=== PATIENT | male | born 1940 | race Caucasian/White ===

== ENCOUNTER 2019-03-28 17:51 | Inpatient (IN) | payer MEDICARE, OTHER | END 2019-03-31 20:04 | disposition home or self-care (01) | LOC: EDH 17:51 → EDHIP 20:25 → 3CH 21:14 | DX: J18.9 Pneumonia, unspecified organism (principal); J44.0 Chronic obstructive pulmonary disease with (acute) lower respiratory infection; E86.0 Dehydration; J40 Bronchitis, not specified as acute or chronic ==

== ENCOUNTER → 2020-12-09 | Outpatient (CLI) | payer MEDICARE ==
[~2020-12-09] MED LIST: ALBU18HF7 IH; ALBU8.5H8 IH; AMLO-258 PO; ASPI-1443 PO; ENAL10TA18 PO; ESOM20CA31 PO; FINA5TAB41 PO; IPRATROPIUM BROMIDE IH; LISI10TA7 PO; LORA1TAB3 PO; MIRA25TA PO; OMEG-148 PO; TURM500C9 PO; ZINC OXIDE PO; vitamin c PO; vitamin d PO
== END | disposition home or self-care (01) ==
LOC: SHCH 13:52
PROVIDERS: ATTEND Internal Medicine Cardiovascular Disease
DX: I35.8 Other nonrheumatic aortic valve disorders (principal)
CPT/HCPCS: 93306; 93356

== ENCOUNTER 2020-12-16 05:53 | Day surgery (SDC) | payer MEDICARE ==
[2020-12-12 14:37] LABS: BASOPHILS % (AUTO) 0.8 % (0.0-5.0); EOSINOPHILS % (AUTO) 1.4 % (0.0-8.0); HEMATOCRIT 44.4 % (42-54); LYMPHOCYTES % (AUTO) 12.8 % (21.0-51.0); MEAN CORPUSCULAR HEMOGLOBIN 31.3 pg (27.0-33.0); MEAN CORPUSCULAR HGB CONC 33.1 g/dL (32.0-36.0); MEAN CORPUSCULAR VOLUME 94.5 fL (79-99); NEUTROPHILS % (AUTO) 76.1 % (40.0-77.0); PLATELET COUNT (AUTO) 169 K/uL (130-400); RED CELL DISTRIBUTION WIDTH 12.6 % (11.0-15.5)
[2020-12-12 14:40] LABS: APPEARANCE,URINE Clear (CLEAR); BILIRUBIN,URINE Negative (NEGATIVE); COLOR,URINE Dark Yellow (YELLOW); GLUCOSE, URINE (UA) Negative (NEGATIVE); KETONES,URINE Negative (NEGATIVE); LEUKOCYTE ESTERASE ,URINE Trace (NEGATIVE); NITRATE,URINE Negative (NEGATIVE); OCCULT BLOOD,URINE Negative (NEGATIVE); PH,URINE 5.5 (5.0-8.0); PROTEIN,URINE Negative (NEGATIVE)
[2020-12-12 14:47] LABS: CREATININE 1.1 mg/dL (0.5-1.5); POTASSIUM 4.9 mmol/L (3.5-5.1)
[2020-12-12 14:49] LABS: PROTHROMBIN TIME 10.7 SEC (9.6-11.6)
[2020-12-12 14:51] LABS: PARTIAL THROMBOPLASTIN TIME 26.8 SEC (26.3-35.5)
[2020-12-12 14:51] LABS: BACTERIA,URINE Rare /HPF (None Seen); RBC,URINE 0-1 /HPF (0-1); SQUAMOUS EPITHELIAL CELL,UR Few /HPF (0-2)
[~2020-12-16] VITALS: Ht 185.4 cm; Wt 100.7 kg
[2020-12-16] VITALS (13 sets, daily range): BP systolic 125–164; BP diastolic 58–86
[~2020-12-16 05:53] MED LIST changes: -ALBU8.5H8 IH; -ENAL10TA18 PO; -FINA5TAB41 PO; -LORA1TAB3 PO; -MIRA25TA PO; +SODIUM CHLORIDE 0.9% 500ML 500 ML IV SCH
[2020-12-16] MEDS ORDERED: SODIUM CHLORIDE 0.9% 1000ML 1,000 ML IV ONE (06:19)
[2020-12-16] MEDS ORDERED: BIVALIRUDIN 250 MG/VIAL IV ONE (07:27)
[2020-12-16] MEDS ORDERED: SODIUM BICARB 50MEQ 50ML VIAL 50 ML ONE (07:27)
[2020-12-16] MEDS ORDERED: HEPARIN SODIUM 1000UNIT/ML 10ML VIAL ONE (07:27)
[2020-12-16] MEDS ORDERED: NICARDIPINE HCL 25 MG/10 ML ML IV ONE (07:27)
[2020-12-16] MEDS ORDERED: IOHEXOL-350 75 ML VIAL IV ONE (07:28)
[2020-12-16] MEDS ORDERED: LIDOCAINE HCL 2% 20ML ONE (07:28)
[2020-12-16] MEDS ORDERED: MIDAZOLAM HCL 1 MG/ML 2ML VIAL ONE (07:28)
[2020-12-16] MEDS ORDERED: FENTANYL CITRATE PF 50 MCG/1 ML 2ML VIAL ONE (07:28)
[2020-12-16] MEDS ORDERED: IOHEXOL 350 MG/ML 100ML INFUS..BTL IV ONE (07:28)
[2020-12-16] MEDS ORDERED: NITROGLYCERIN 2 MG/VIAL VIAL IV ONE (07:28)
[2020-12-16] MEDS ORDERED: IOHEXOL-350 50ML VIAL IV ONE (09:39)
[2020-12-16] MEDS ORDERED: SODIUM CHLORIDE 0.9% 1000ML 1,000 ML IV SCH (10:30)
== END 2020-12-16 15:00 | disposition home or self-care (01) ==
LOC: DAH 05:53
PROVIDERS: ATTEND Internal Medicine Cardiovascular Disease
DX: I25.119 Atherosclerotic heart disease of native coronary artery with unspecified angina pectoris (principal); I11.0 Hypertensive heart disease with heart failure; I50.22 Chronic systolic (congestive) heart failure; E78.6 Lipoprotein deficiency; Z98.890 Other specified postprocedural states; Z79.82 Long term (current) use of aspirin; Z98.49 Cataract extraction status, unspecified eye; Z82.49 Family history of ischemic heart disease and other diseases of the circulatory system; Z72.89 Other problems related to lifestyle; Z79.899 Other long term (current) drug therapy; Z88.8 Allergy status to other drugs, medicaments and biological substances; Z79.01 Long term (current) use of anticoagulants
CPT/HCPCS: 36415; 71045; 80048; 81001; 85025; 85610; 85730; 93005; 93458; A4215; A4216; A4221; A4222; A4223 ×3; A4606; A4663; C1760; C1769; C1894 ×3; J1644 ×2; J2250; J3010; J3490 ×4; J7030; Q9965; Q9967 ×3; 99156; 99157; J0583

== ENCOUNTER 2021-04-01 10:27 | Observation (INO) | payer MEDICARE ==
[~2021-04-01] VITALS: Ht 185.4 cm; Wt 100.7 kg
[~2021-04-01 10:27] MED LIST changes: +LISI10TA24 PO; -LISI10TA7 PO; -SODIUM CHLORIDE 0.9% 500ML 500 ML IV SCH
[2021-04-01 10:56] LABS: BASOPHILS % (AUTO) 0.5 % (0.0-5.0); EOSINOPHILS % (AUTO) 1.3 % (0.0-8.0); HEMATOCRIT 42.5 % (42-54); LYMPHOCYTES % (AUTO) 11.4 % (21.0-51.0); MEAN CORPUSCULAR HEMOGLOBIN 31.3 pg (27.0-33.0); MEAN CORPUSCULAR HGB CONC 34.6 g/dL (32.0-36.0); MEAN CORPUSCULAR VOLUME 90.6 fL (79-99); MONOCYTES % (AUTO) 5.6 % (3.0-13.0); NEUTROPHILS % (AUTO) 80.5 % (40.0-77.0); PLATELET COUNT (AUTO) 236 K/uL (130-400); RED BLOOD CELL COUNT(AUTO) 4.69 MIL/uL (4.50-6.20); RED CELL DISTRIBUTION WIDTH 13.2 % (11.0-15.5); WHITE BLOOD COUNT (AUTO) 9.5 K/uL (4.8-10.8)
[2021-04-01 11:10] LABS: CREATININE 1.1 mg/dL (0.5-1.5); POTASSIUM 3.6 mmol/L (3.5-5.1)
[2021-04-01 11:14] LABS: ALBUMIN 3.4 g/dL (3.5-5.0); BILIRUBIN,TOTAL 0.7 mg/dL (0.2-1.0); TOTAL PROTEIN, SERUM 6.9 g/dL (6.0-8.3)
[2021-04-01 11:25] LABS: B-TYPE NATRIURETIC PEPTIDE 124 pg/mL (0-100)
[2021-04-01 13:41] LABS: INR 1.05 (0.85-1.15); PARTIAL THROMBOPLASTIN TIME 24.6 SEC (26.3-35.5); PROTHROMBIN TIME 10.9 SEC (9.6-11.6)
[2021-04-01] MEDS ORDERED: PANTOPRAZOLE SODIUM 40 MG TABLET.DR PO SCH (16:00)
[2021-04-01] MEDS ORDERED: MORPHINE SULFATE 2 MG/ML 1ML SYG IV PRN (16:00)
[2021-04-01] MEDS ORDERED: ASPIRIN 81MG TAB.CHEW PO SCH (16:00)
[2021-04-01] MEDS ORDERED: IPRATROPIUM/ALBUTEROL SULFATE 3 ML SOLUTION IH PRN (16:00)
[2021-04-01] MEDS ORDERED: LIDOCAINE HCL 2% VISCOUS 60 ML, MAG HYDROX/AL HYDROX/SIMETH 60 ML, DICYCLOMINE HCL 40 MG PO PRN ×3 (16:00)
[2021-04-01 16:09] LABS: HEMOGLOBIN A1C 6.2 % (4.0-6.0)
[2021-04-01 16:24] LABS: CHOLESTEROL 67 mg/dL (<200); CREATINE KINASE, TOTAL 319 U/L (21-232); HDL CHOLESTEROL 36 mg/dL (29-71); LDL DIRECT 25 mg/dL (0-99); MYOGLOBIN 173 ng/mL (10-92); THYROID STIMULATING HORMONE 1.21 uIU/mL (0.36-3.74); TRIGLYCERIDES 77 mg/dL (30-200); TROPONIN I < 0.04 ng/mL (0.00-0.06)
[2021-04-01] MEDS ORDERED: PANTOPRAZOLE SODIUM 40 MG TABLET.DR ONE (16:27)
[2021-04-01] MEDS ORDERED: ASPIRIN 325 MG TABLET ONE (16:27)
[2021-04-01] MEDS ORDERED: NITROGLYCERIN 1GM/1 INCH PACKET TD ONE (16:28)
[2021-04-01] MEDS ORDERED: COMPOUND PO MISCELLANEOUS 1 EACH MISC MISC PRN (16:30)
[2021-04-01] MEDS: METOPROLOL SUCCINATE 50 MG TAB.SR.24H PO SCH (17:00)
[2021-04-01] MEDS ORDERED: METOPROLOL TARTRATE 25 MG TAB ONE (21:06)
[2021-04-01 22:40] VITALS: BP 160/71
[2021-04-01 22:47] LABS: CREATINE KINASE, TOTAL 261 U/L (21-232); MYOGLOBIN 192 ng/mL (10-92); TROPONIN I < 0.04 ng/mL (0.00-0.06)
[2021-04-01] MEDS ORDERED: UMEC1DIS IH (23:06)
[2021-04-01] MEDS ORDERED: ROSU20TA31 PO (23:06)
[2021-04-01] MEDS ORDERED: METO-408 PO (23:06)
[2021-04-01] MEDS ORDERED: LOSA25TA41 PO (23:06)
[2021-04-02 00:08] VITALS: BP 142/71
[2021-04-02 04:08] VITALS: BP 142/70
[2021-04-02] MEDS: METOPROLOL SUCCINATE 50 MG TAB.SR.24H PO SCH (08:34)
[2021-04-02 08:42] VITALS: BP 139/73
[2021-04-02] MEDS ORDERED: ASPIRIN 81MG TAB.CHEW PO SCH (09:00)
[2021-04-02] MEDS ORDERED: PANTOPRAZOLE SODIUM 40 MG TABLET.DR PO SCH (09:00)
[2021-04-02] MEDS ORDERED: ANORA ELLIPTA IH SCH (09:00)
[2021-04-02] MEDS ORDERED: ENOXAPARIN SODIUM 40 MG/0.4 ML SYRINGE SQ SCH (09:00)
[2021-04-02] MEDS ORDERED: AMLODIPINE BESYLATE 5 MG TAB PO SCH (09:00)
[2021-04-02] MEDS ORDERED: LOSARTAN 25 MG TABLET PO SCH (09:00)
[2021-04-02] MEDS ORDERED: ALBUTEROL SULFATE 0.083% 2.5 MG/3 ML INH IH SCH (09:00)
[2021-04-02 12:18] VITALS: BP 135/75
[2021-04-02] MEDS ORDERED: SUCR1TAB28 PO (13:06)
[2021-04-02] MEDS ORDERED: ATORVASTATIN CALCIUM 40 MG TABLET PO SCH (21:00)
== END 2021-04-02 15:24 | disposition home or self-care (01) ==
LOC: EDH 10:27 → EDHIP 15:45 → 4BH 22:39
PROVIDERS: ADMIT Internal Medicine; ATTEND Internal Medicine
DX: R07.89 Other chest pain (principal); I25.110 Atherosclerotic heart disease of native coronary artery with unstable angina pectoris; I10 Essential (primary) hypertension; E78.5 Hyperlipidemia, unspecified; J44.9 Chronic obstructive pulmonary disease, unspecified; K21.9 Gastro-esophageal reflux disease without esophagitis; G83.11 Monoplegia of lower limb affecting right dominant side; I25.2 Old myocardial infarction; G04.81 Other encephalitis and encephalomyelitis; F41.9 Anxiety disorder, unspecified; R79.89 Other specified abnormal findings of blood chemistry; Z79.899 Other long term (current) drug therapy; Z88.5 Allergy status to narcotic agent; Z88.8 Allergy status to other drugs, medicaments and biological substances
CPT/HCPCS: 36415; 71045; 80053; 80061; 82550 ×3; 83036; 83874 ×2; 83880; 84443; 84484 ×3; 85025; 85610; 85730; 93005; 93970; 94664; 96372; 99285; G0378 ×23; J1650

== ENCOUNTER 2022-05-23 18:50 | Inpatient (IN) | payer MEDICARE ==
[~2022-05-23] VITALS: Ht 185.4 cm; Wt 101.7 kg
[~2022-05-23 18:50] MED LIST changes: -IPRATROPIUM BROMIDE IH; -LISI10TA24 PO; +LOSA25TA41 PO; +METO-408 PO; -OMEG-148 PO; +ROSU20TA31 PO; +SUCR1TAB28 PO; -TURM500C9 PO; +UMEC1DIS IH; -ZINC OXIDE PO; -vitamin c PO; -vitamin d PO
[2022-05-23] MEDS ORDERED: ACETAMINOPHEN 325 MG TAB PO ONE (19:30)
[2022-05-23 19:42] LABS: BASOPHILS % (AUTO) 0.2 % (0.0-5.0); EOSINOPHILS % (AUTO) 0.1 % (0.0-8.0); HEMATOCRIT 42.4 % (42-54); LYMPHOCYTES % (AUTO) 1.9 % (21.0-51.0); MEAN CORPUSCULAR HEMOGLOBIN 32.1 pg (27.0-33.0); MEAN CORPUSCULAR HGB CONC 34.7 g/dL (32.0-36.0); MEAN CORPUSCULAR VOLUME 92.6 fL (79-99); MONOCYTES % (AUTO) 4.5 % (3.0-13.0); NEUTROPHILS % (AUTO) 92.6 % (40.0-77.0); PLATELET COUNT (AUTO) 154 K/uL (130-400); RED BLOOD CELL COUNT(AUTO) 4.58 MIL/uL (4.50-6.20); RED CELL DISTRIBUTION WIDTH 12.9 % (11.0-15.5)
[2022-05-23 19:43] LABS: APPEARANCE,URINE Clear (CLEAR); BILIRUBIN,URINE Negative (NEGATIVE); COLOR,URINE Yellow (YELLOW); GLUCOSE, URINE (UA) Negative (NEGATIVE); KETONES,URINE Trace mg/dL (NEGATIVE); LEUKOCYTE ESTERASE ,URINE Negative (NEGATIVE); NITRATE,URINE Negative (NEGATIVE); OCCULT BLOOD,URINE Negative (NEGATIVE); PH,URINE 5.5 (5.0-8.0); PROTEIN,URINE Trace mg/dL (NEGATIVE)
[2022-05-23 19:56] LABS: CREATININE 1.1 mg/dL (0.5-1.5); POTASSIUM 4.1 mmol/L (3.5-5.1)
[2022-05-23 20:08] LABS: ALBUMIN 3.5 g/dL (3.5-5.0); BILIRUBIN,TOTAL 0.9 mg/dL (0.2-1.0); TOTAL PROTEIN, SERUM 6.9 g/dL (6.0-8.3)
[2022-05-23 20:15] LABS: RBC,URINE 0-1 /HPF (0-1); WBC,URINE 0-1 /HPF (0-1)
[2022-05-23 20:16] LABS: BACTERIA,URINE Few /HPF (None Seen); SQUAMOUS EPITHELIAL CELL,UR Rare /HPF (0-2)
[2022-05-23] MEDS ORDERED: LEVOFLOXACIN 750 MG/D5W 150 ML 150 ML ONE (20:30)
[2022-05-23] MEDS ORDERED: IPRATROPIUM/ALBUTEROL SULFATE 3 ML SOLUTION IH PRN (21:30)
[2022-05-23] MEDS ORDERED: ACETAMINOPHEN 325 MG TAB PO PRN ×2 (21:30)
[2022-05-23] MEDS ORDERED: ONDANSETRON 4MG INJ IV PRN (21:30)
[2022-05-23] MEDS ORDERED: MAGNESIUM 2GM PREMIX 50ML 50 ML IV SCH (21:30)
[2022-05-23] MEDS ORDERED: NITROGLYCERIN 0.4 MG SL TAB SL PRN (21:30)
[2022-05-23] MEDS: IPRATROPIUM/ALBUTEROL SULFATE 3 ML SOLUTION IH SCH (21:57)
[2022-05-23] MEDS ORDERED: SOLU-MEDROL 125MG VIAL IVP ONE (23:00)
[2022-05-23 23:40] VITALS: BP 169/80
[2022-05-24] VITALS (7 sets, daily range): BP systolic 140–180; BP diastolic 76–99
[2022-05-24] MEDS ORDERED: CEFTRIAXONE 1G VIAL IV SCH (00:30)
[2022-05-24] MEDS ORDERED: AZITHROMYCIN 500MG+NS 250ML 250 ML IV SCH (00:30)
[2022-05-24] MEDS ORDERED: SOLU-MEDROL 125MG VIAL ONE (01:15)
[2022-05-24] MEDS: IPRATROPIUM/ALBUTEROL SULFATE 3 ML SOLUTION IH SCH ×5 (01:47→18:22)
[2022-05-24] MEDS ORDERED: SODIUM CHLORIDE 7% INHALATION 4 ML VIAL.NEB IH ONE (01:51)
[2022-05-24 02:18] LABS: BASOPHILS % (AUTO) 0.2 % (0.0-5.0); HEMATOCRIT 42.9 % (42-54); LYMPHOCYTES % (AUTO) 5.7 % (21.0-51.0); MEAN CORPUSCULAR HEMOGLOBIN 31.7 pg (27.0-33.0); MEAN CORPUSCULAR HGB CONC 33.8 g/dL (32.0-36.0); MEAN CORPUSCULAR VOLUME 93.7 fL (79-99); MONOCYTES % (AUTO) 6.1 % (3.0-13.0); NEUTROPHILS % (AUTO) 87.4 % (40.0-77.0); PLATELET COUNT (AUTO) 155 K/uL (130-400); RED BLOOD CELL COUNT(AUTO) 4.58 MIL/uL (4.50-6.20); WHITE BLOOD COUNT (AUTO) 24.1 K/uL (4.8-10.8)
[2022-05-24 02:41] LABS: BILIRUBIN,TOTAL 1.4 mg/dL (0.2-1.0); CREATININE 1.1 mg/dL (0.5-1.5); MAGNESIUM 2.1 mg/dL (1.80-2.40); POTASSIUM 4.2 mmol/L (3.5-5.1); TOTAL PROTEIN, SERUM 6.6 g/dL (6.0-8.3)
[2022-05-24] MEDS: SOLU-MEDROL 125MG VIAL IVP SCH ×3 (06:28→16:52)
[2022-05-24] MEDS: FAMOTIDINE 20MG TAB PO SCH ×2 (08:22→20:59)
[2022-05-24] MEDS ORDERED: LEVOFLOXACIN 750 MG/D5W 150 ML 150 ML IV SCH (09:00)
[2022-05-24] MEDS ORDERED: ENOXAPARIN SODIUM 30 MG/0.3 ML SQ SCH (09:00)
[2022-05-24] MEDS ORDERED: ZINC50TA15 PO (11:51)
[2022-05-24] MEDS ORDERED: TURM500C9 PO (11:51)
[2022-05-24] MEDS ORDERED: VITA1TAB22 PO (11:51)
[2022-05-24] MEDS ORDERED: ASCO100031 PO (11:51)
[2022-05-24] MEDS ORDERED: NITR0.4T50 SL (11:51)
[2022-05-24] MEDS ORDERED: ROSU20TA31 PO (11:51)
[2022-05-24] MEDS ORDERED: CHOL2400 PO (11:51)
[2022-05-24] MEDS ORDERED: NITROGLYCERIN 0.4 MG SL TAB SL ONE (16:45)
[2022-05-24] MEDS ORDERED: METOPROLOL TARTRATE 25 MG TAB PO ONE (22:30)
[2022-05-24] MEDS ORDERED: RENAL DOSE IV PRN (23:00)
[2022-05-24] MEDS ORDERED: DEXTROSE 50%-WATER 50 ML DISP.SYRIN IV PRN (23:00)
[2022-05-24] MEDS ORDERED: GLUCAGON 1MG KIT 1 MG ML IM PRN (23:00)
[2022-05-25] MEDS: IPRATROPIUM/ALBUTEROL SULFATE 3 ML SOLUTION IH SCH ×3 (00:11→11:30)
[2022-05-25] MEDS ORDERED: ASPIRIN 325MG TAB PO ONE (02:30)
[2022-05-25 02:50] LABS: HEMATOCRIT 38.8 % (42-54); MEAN CORPUSCULAR HEMOGLOBIN 31.8 pg (27.0-33.0); MEAN CORPUSCULAR HGB CONC 34.5 g/dL (32.0-36.0); MEAN CORPUSCULAR VOLUME 91.9 fL (79-99); RED BLOOD CELL COUNT(AUTO) 4.22 MIL/uL (4.50-6.20); WHITE BLOOD COUNT (AUTO) 20.6 K/uL (4.8-10.8)
[2022-05-25 03:18] LABS: CREATININE 1.1 mg/dL (0.5-1.5); POTASSIUM 4.1 mmol/L (3.5-5.1)
[2022-05-25 03:32] LABS: MAGNESIUM 2.1 mg/dL (1.80-2.40); PHOSPHORUS 2.4 mg/dL (2.5-4.9); THYROID STIMULATING HORMONE 0.51 uIU/mL (0.36-3.74)
[2022-05-25] MEDS ORDERED: ASPIRIN 325MG TAB ONE (03:33)
[2022-05-25] MEDS ORDERED: ENOXAPARIN SODIUM 40 MG/0.4 ML SYRINGE SQ ONE (04:00)
[2022-05-25 04:15] VITALS: BP 162/79
[2022-05-25] MEDS: INSULIN HUMULIN R 100 UNIT/ML 3ML SQ SCH ×4 (07:44→21:00)
[2022-05-25 08:00] VITALS: BP 144/66
[2022-05-25 08:43] LABS: ABG BASE EXCESS -0.9 mmol/L (-2.0-3.0); ABG HCO3 21.8 mmol/L (21.0-28.0); ABG OXYGEN SATURATION 95.2 % (95.0-99.0); ABG PCO2 31 mmHg (35-48)
[2022-05-25] MEDS: METOPROLOL TARTRATE 25 MG TAB PO SCH ×2 (08:58→21:25)
[2022-05-25] MEDS: FAMOTIDINE 20MG TAB PO SCH ×2 (08:58→21:25)
[2022-05-25] MEDS: PREDNISONE 20 MG TABLET PO SCH (08:58)
[2022-05-25] MEDS: LOSARTAN 25 MG TABLET PO SCH (08:59)
[2022-05-25] MEDS: ASPIRIN 81 MG EC TAB PO SCH (08:59)
[2022-05-25] MEDS: LEVOFLOXACIN 750 MG/D5W 150 ML 150 ML IV SCH (08:59)
[2022-05-25] MEDS ORDERED: ENOXAPARIN SODIUM 40 MG/0.4 ML SYRINGE SQ SCH (09:00)
[2022-05-25 12:00] VITALS: BP 162/74
[2022-05-25] MEDS ORDERED: IPRATROPIUM/ALBUTEROL SULFATE 3 ML SOLUTION IH PRN ×2 (13:30→14:00)
[2022-05-25] MEDS ORDERED: PHARMACY COMMUNICATION MISC SCH (14:00)
[2022-05-25 14:04] LABS: INR 0.93 (0.85-1.15); PROTHROMBIN TIME 10.2 SEC (9.6-11.6)
[2022-05-25] MEDS ORDERED: CLOPIDOGREL 300MG TAB PO ONE (14:45)
[2022-05-25] MEDS ORDERED: HEPARIN 5,000 UNIT VIAL ONE (15:07)
[2022-05-25] MEDS: HEPARIN 25,000 UNITS/250ML D5W 250 ML IV SCH (15:32)
[2022-05-25 15:45] VITALS: BP 171/83
[2022-05-25 19:31] LABS: INR 0.99 (0.85-1.15); PROTHROMBIN TIME 10.8 SEC (9.6-11.6)
[2022-05-25 19:52] LABS: PARTIAL THROMBOPLASTIN TIME 134.4 SEC (26.3-35.5)
[2022-05-25 20:51] VITALS: BP 179/99
[2022-05-25] MEDS ORDERED: ENOXAPARIN SODIUM 100 MG/1 ML SQ SCH (21:00)
[2022-05-25] MEDS ORDERED: ATORVASTATIN 20 MG TABLET PO SCH (21:00)
[2022-05-25] MEDS: ATORVASTATIN 20 MG TABLET PO SCH (21:25)
[2022-05-25] MEDS ORDERED: CLONIDINE HCL 0.1 MG TABLET PO PRN (23:30)
[2022-05-26] VITALS (12 sets, daily range): BP systolic 127–164; BP diastolic 59–94
[2022-05-26 01:55] LABS: INR 0.95 (0.85-1.15); PROTHROMBIN TIME 10.4 SEC (9.6-11.6)
[2022-05-26 01:56] LABS: PARTIAL THROMBOPLASTIN TIME 56.3 SEC (26.3-35.5)
[2022-05-26 04:40] LABS: BASOPHILS % (AUTO) 0.1 % (0.0-5.0); HEMATOCRIT 40.6 % (42-54); LYMPHOCYTES % (AUTO) 4.7 % (21.0-51.0); MEAN CORPUSCULAR HEMOGLOBIN 31.8 pg (27.0-33.0); MEAN CORPUSCULAR HGB CONC 33.5 g/dL (32.0-36.0); MEAN CORPUSCULAR VOLUME 94.9 fL (79-99); MONOCYTES % (AUTO) 5.6 % (3.0-13.0); NEUTROPHILS % (AUTO) 88.6 % (40.0-77.0); PLATELET COUNT (AUTO) 162 K/uL (130-400); RED BLOOD CELL COUNT(AUTO) 4.28 MIL/uL (4.50-6.20); RED CELL DISTRIBUTION WIDTH 13.3 % (11.0-15.5); WHITE BLOOD COUNT (AUTO) 15.3 K/uL (4.8-10.8)
[2022-05-26 04:51] LABS: ALBUMIN 2.7 g/dL (3.5-5.0); BILIRUBIN,TOTAL 0.5 mg/dL (0.2-1.0); POTASSIUM 4.1 mmol/L (3.5-5.1); TOTAL PROTEIN, SERUM 6.1 g/dL (6.0-8.3)
[2022-05-26 05:01] LABS: INR 0.96 (0.85-1.15); PROTHROMBIN TIME 10.5 SEC (9.6-11.6)
[2022-05-26 05:02] LABS: PARTIAL THROMBOPLASTIN TIME 53.7 SEC (26.3-35.5)
[2022-05-26] MEDS: INSULIN HUMULIN R 100 UNIT/ML 3ML SQ SCH ×4 (06:07→21:55)
[2022-05-26] MEDS: HEPARIN 25,000 UNITS/250ML D5W 250 ML IV SCH (07:50)
[2022-05-26] MEDS ORDERED: HEPARIN 10,000 UNIT/10ML (1,000 UNIT/ML) VIAL ONE (09:47)
[2022-05-26] MEDS ORDERED: BIVALIRUDIN 250 MG/VIAL IV ONE (09:47)
[2022-05-26] MEDS ORDERED: FENTANYL CITRATE PF 50 MCG/1 ML 2ML VIAL ONE (09:48)
[2022-05-26] MEDS ORDERED: MIDAZOLAM HCL 1 MG/ML 2ML VIAL ONE (09:48)
[2022-05-26] MEDS ORDERED: LIDOCAINE HCL 400MG/20ML VIAL ONE (09:48)
[2022-05-26] MEDS ORDERED: IOHEXOL-350 50ML VIAL IV ONE (09:48)
[2022-05-26] MEDS ORDERED: NITROGLYCERIN 50MG VIAL ONE (09:52)
[2022-05-26] MEDS ORDERED: IOHEXOL-350 75 ML VIAL IV ONE ×2 (09:52→10:52)
[2022-05-26] MEDS ORDERED: 0.9%NACL 1000ML 1,000 ML IV SCH (12:00)
[2022-05-26] MEDS: METOPROLOL TARTRATE 25 MG TAB PO SCH ×2 (12:19→21:48)
[2022-05-26] MEDS: PREDNISONE 20 MG TABLET PO SCH (12:19)
[2022-05-26] MEDS: LOSARTAN 25 MG TABLET PO SCH (12:19)
[2022-05-26] MEDS: FAMOTIDINE 20MG TAB PO SCH ×2 (12:19→21:48)
[2022-05-26] MEDS: ASPIRIN 81 MG EC TAB PO SCH (12:20)
[2022-05-26] MEDS: LEVOFLOXACIN 750 MG/D5W 150 ML 150 ML IV SCH (12:20)
[2022-05-26] MEDS: CLOPIDOGREL 75MG TAB PO SCH (12:20)
[2022-05-26 12:38] LABS: INR 0.93 (0.85-1.15)
[2022-05-26 12:39] LABS: PARTIAL THROMBOPLASTIN TIME 46.6 SEC (26.3-35.5)
[2022-05-26] MEDS: ATORVASTATIN 20 MG TABLET PO SCH (21:48)
[2022-05-27 00:22] VITALS: BP 144/79
[2022-05-27 03:55] VITALS: BP 160/86
[2022-05-27 05:10] LABS: HEMATOCRIT 38.8 % (42-54); MEAN CORPUSCULAR HEMOGLOBIN 31.9 pg (27.0-33.0); MEAN CORPUSCULAR HGB CONC 33.8 g/dL (32.0-36.0); MEAN CORPUSCULAR VOLUME 94.4 fL (79-99); RED BLOOD CELL COUNT(AUTO) 4.11 MIL/uL (4.50-6.20); RED CELL DISTRIBUTION WIDTH 13.1 % (11.0-15.5); WHITE BLOOD COUNT (AUTO) 9.3 K/uL (4.8-10.8)
[2022-05-27 05:26] LABS: CREATININE 0.9 mg/dL (0.5-1.5); POTASSIUM 3.6 mmol/L (3.5-5.1)
[2022-05-27] MEDS: INSULIN HUMULIN R 100 UNIT/ML 3ML SQ SCH ×2 (06:19→11:30)
[2022-05-27 07:47] VITALS: BP 156/66
[2022-05-27] MEDS: METOPROLOL TARTRATE 25 MG TAB PO SCH (08:06)
[2022-05-27] MEDS: FAMOTIDINE 20MG TAB PO SCH (08:06)
[2022-05-27] MEDS: ASPIRIN 81 MG EC TAB PO SCH (08:06)
[2022-05-27] MEDS: PREDNISONE 20 MG TABLET PO SCH (08:06)
[2022-05-27] MEDS: LEVOFLOXACIN 750 MG/D5W 150 ML 150 ML IV SCH (08:07)
[2022-05-27] MEDS: LOSARTAN 25 MG TABLET PO SCH (08:07)
[2022-05-27] MEDS: CLOPIDOGREL 75MG TAB PO SCH (08:07)
[2022-05-27] MEDS ORDERED: LOSA50TA64 PO (10:43)
[2022-05-27] MEDS ORDERED: CLOP75TA14 PO (10:43)
[2022-05-27] MEDS ORDERED: METO25TA6 PO (10:43)
[2022-05-27] MEDS ORDERED: ATOR20TA PO (10:43)
[2022-05-27] MEDS ORDERED: ASPI-1443 PO (10:43)
[2022-05-27] MEDS ORDERED: PRED20TA3 PO (10:43)
[2022-05-27] MEDS ORDERED: LEVO750T46 PO (10:43)
[2022-05-27] MEDS ORDERED: SENNOSIDES 8.6 MG TABLET PO SCH (11:00)
[2022-05-27] MEDS ORDERED: LACTULOSE 20 GM/30 ML UDCUP PO SCH (11:00)
[2022-05-27 11:24] VITALS: BP 162/73
[2022-05-28] MEDS ORDERED: LOSARTAN 50 MG TABLET PO SCH (09:00)
== END 2022-05-27 14:00 | disposition home or self-care (01) | DRG 871 ==
LOC: EDH 18:50 → INTOOBSV 21:28 → OBSVTOIN 21:28 → EDHIP 21:28 → 3DH 23:28
PROVIDERS: ADMIT Hospitalist; ATTEND Hospitalist
PROC: 4A023N7 Measurement of Cardiac Sampling and Pressure, Left Heart, Percutaneous Approach (ICD-10-PCS; principal; 2022-05-26)
PROC: B2111ZZ Fluoroscopy of Multiple Coronary Arteries using Low Osmolar Contrast (ICD-10-PCS; 2022-05-26)
PROC: B41F1ZZ Fluoroscopy of Right Lower Extremity Arteries using Low Osmolar Contrast (ICD-10-PCS; 2022-05-26)
PROC: 02JA3ZZ Inspection of Heart, Percutaneous Approach (ICD-10-PCS; 2022-05-26)
DX: A41.9 Sepsis, unspecified organism (principal); I21.4 Non-ST elevation (NSTEMI) myocardial infarction; J18.9 Pneumonia, unspecified organism; J96.01 Acute respiratory failure with hypoxia; I50.31 Acute diastolic (congestive) heart failure; J44.1 Chronic obstructive pulmonary disease with (acute) exacerbation; E87.1 Hypo-osmolality and hyponatremia; J44.0 Chronic obstructive pulmonary disease with (acute) lower respiratory infection; I50.32 Chronic diastolic (congestive) heart failure; E83.42 Hypomagnesemia; I49.1 Atrial premature depolarization; Z20.822 Contact with and (suspected) exposure to COVID-19; E78.00 Pure hypercholesterolemia, unspecified; Z95.5 Presence of coronary angioplasty implant and graft; I25.2 Old myocardial infarction; K21.9 Gastro-esophageal reflux disease without esophagitis; I25.10 Atherosclerotic heart disease of native coronary artery without angina pectoris; Z90.49 Acquired absence of other specified parts of digestive tract; E66.9 Obesity, unspecified; I11.0 Hypertensive heart disease with heart failure; Z68.29 Body mass index [BMI] 29.0-29.9, adult; G47.33 Obstructive sleep apnea (adult) (pediatric); E11.40 Type 2 diabetes mellitus with diabetic neuropathy, unspecified; R65.20 Severe sepsis without septic shock; Z79.899 Other long term (current) drug therapy; Z82.49 Family history of ischemic heart disease and other diseases of the circulatory system
CPT/HCPCS: 36415; 36600; 70450; 71045; 71046; 71250; 80048; 80053; 81001; 82306; 82607; 82803; 82948; 83605; 83735; 83880; 84100; 84145; 84425; 84443; 84484; 85025; 85027; 85610; 85730; 87040; 87071; 87205; 87635; 87804; 87880; 92610; 92920; 93005; 93306; 93356; 93454; 94640; 94664; 94760; 99156; 99157; C1769; C1887; C1893; C1894; C9803; G0378; J0456; J0583; J0696; J1644; J1650; J1815; J1956; J2250; J2930; J3010; J3475; J3490; Q9967

== ENCOUNTER → 2022-10-04 | Outpatient (CLI) | payer MEDICARE ==
[~2022-10-04] MED LIST changes: -ALBU18HF7 IH; +ASCO100031 PO; +ATOR20TA PO; +CHOL2400 PO; +CLOP-31 PO; +LEVO750T68 PO; -LOSA25TA41 PO; +LOSA50TA64 PO; -METO-408 PO; +METO25TA6 PO; +NITR0.4T50 SL; +PRED20TA3 PO; -ROSU20TA31 PO; -SUCR1TAB28 PO; -UMEC1DIS IH; +VITA1TAB22 PO; +ZINC50TA15 PO
== END | disposition home or self-care (01) ==
LOC: RAH 10:22
PROVIDERS: ATTEND Neurological Surgery
DX: M47.816 Spondylosis without myelopathy or radiculopathy, lumbar region (principal); M48.061 Spinal stenosis, lumbar region without neurogenic claudication; M54.2 Cervicalgia; M54.50 Low back pain, unspecified
CPT/HCPCS: 72141; 72148

== ENCOUNTER → 2023-04-25 | Outpatient (CLI) | payer MEDICARE | END | disposition home or self-care (01) | LOC: RAH 10:00 | PROVIDERS: ATTEND Internal Medicine Critical Care Medicine | DX: N28.1 Cyst of kidney, acquired (principal); N28.89 Other specified disorders of kidney and ureter | CPT/HCPCS: 76770 ==

== ENCOUNTER 2024-01-26 10:15 | Emergency (ER) | payer MEDICARE ==
[~2024-01-26] VITALS: Ht 185.4 cm; Wt 95.3 kg
[~2024-01-26 10:15] MED LIST changes: -AMLO-258 PO; +APIX2.5T PO; -ASPI-1443 PO; -ATOR20TA PO; +ATOR40TA71 PO; +CILO50TA2 PO; -CLOP-31 PO; +CLOP75TA32 PO; +DULO30CA52 PO; -LEVO750T68 PO; +MECL-160 PO; +METO-409 PO; -METO25TA6 PO; -PRED20TA3 PO
[2024-01-26 10:48] LABS: BASOPHILS # (AUTO) 0.05 K/uL (0.00-0.20); BASOPHILS % (AUTO) 0.7 % (0.0-5.0); EOSINOPHILS # (AUTO) 0.09 K/uL (0.00-0.70); EOSINOPHILS % (AUTO) 1.2 % (0.0-8.0); HEMATOCRIT 39.9 % (42-54); IMMATURE GRANULOCYTE ABSOLUTE 0.07 K/uL (0-1); LYMPHOCYTES # (AUTO) 0.9 K/uL (1.0-4.8); LYMPHOCYTES % (AUTO) 12.2 % (21.0-51.0); MEAN CORPUSCULAR HEMOGLOBIN 30.5 pg (27.0-33.0); MEAN CORPUSCULAR HGB CONC 32.8 g/dL (32.0-36.0); MONOCYTES # (AUTO) 0.5 K/uL (0.1-1.0); MONOCYTES % (AUTO) 6.1 % (3.0-13.0); NEUTROPHILS # (AUTO) 5.8 K/uL (1.8-7.7); NEUTROPHILS % (AUTO) 78.8 % (40.0-77.0); PLATELET COUNT (AUTO) 222 K/uL (130-400); RED BLOOD CELL COUNT(AUTO) 4.29 MIL/uL (4.50-6.20); RED CELL DISTRIBUTION WIDTH 14.8 % (11.0-15.5); WHITE BLOOD COUNT (AUTO) 7.3 K/uL (4.8-10.8)
[2024-01-26 10:54] LABS: POTASSIUM 4.2 mmol/L (3.5-5.1)
[2024-01-26 10:56] LABS: INR <= 0.93 (0.85-1.15); PROTHROMBIN TIME 10.7 SEC (9.6-11.6)
[2024-01-26 10:57] LABS: PARTIAL THROMBOPLASTIN TIME 29.6 SEC (26.3-35.5)
[2024-01-26 10:58] LABS: ALBUMIN 3.2 g/dL (3.5-5.0); BILIRUBIN,TOTAL 0.8 mg/dL (0.2-1.0); MAGNESIUM 1.8 mg/dL (1.80-2.40); TOTAL PROTEIN, SERUM 6.7 g/dL (6.0-8.3)
[2024-01-26] MEDS: IPRATROPIUM 0.5 MG/2.5 ML INH IH ONE (10:59)
[2024-01-26 11:02] VITALS: PULSE 97; RESP 18
[2024-01-26 11:42] LABS: B-TYPE NATRIURETIC PEPTIDE 92 pg/mL (0-100)
[2024-01-26] MEDS ORDERED: PRED20TA3 PO (12:34)
[2024-01-26 13:03] VITALS: BP 132/78; PULSE 78; RESP 18; O2SAT 98
== END 2024-01-26 13:06 | disposition home or self-care (01) ==
LOC: EDH 10:15
DX: J44.1 Chronic obstructive pulmonary disease with (acute) exacerbation (principal); I10 Essential (primary) hypertension; I25.2 Old myocardial infarction; Z79.01 Long term (current) use of anticoagulants; Z79.02 Long term (current) use of antithrombotics/antiplatelets; Z79.899 Other long term (current) drug therapy; Z86.73 Personal history of transient ischemic attack (TIA), and cerebral infarction without residual deficits; Z88.5 Allergy status to narcotic agent; Z90.49 Acquired absence of other specified parts of digestive tract; Z95.5 Presence of coronary angioplasty implant and graft
CPT/HCPCS: 36415; 71045; 80053; 83735; 83880; 84484; 85025; 85610; 85730; 93005; 94640

== ENCOUNTER 2024-11-17 14:25 | Inpatient (IN) | payer MEDICARE ==
[~2024-11-17] VITALS: Ht 182.9 cm; Wt 100.4 kg
[~2024-11-17 14:25] MED LIST changes: -APIX2.5T PO; -CLOP75TA32 PO; -DULO30CA52 PO; -MECL-160 PO; +TAMS-1 PO; +VITA-427 PO; -VITA1TAB22 PO
[2024-11-17 15:34] LABS: BASOPHILS # (AUTO) 0.04 K/uL (0.00-0.20); BASOPHILS % (AUTO) 0.4 % (0.0-5.0); EOSINOPHILS # (AUTO) 0.09 K/uL (0.00-0.70); EOSINOPHILS % (AUTO) 0.8 % (0.0-8.0); HEMATOCRIT 36.3 % (42-54); IMMATURE GRANULOCYTE ABSOLUTE 0.09 K/uL (0-1); LYMPHOCYTES # (AUTO) 0.4 K/uL (1.0-4.8); LYMPHOCYTES % (AUTO) 3.6 % (21.0-51.0); MEAN CORPUSCULAR HGB CONC 34.7 g/dL (32.0-36.0); MEAN CORPUSCULAR VOLUME 92.1 fL (79-99); MONOCYTES # (AUTO) 0.8 K/uL (0.1-1.0); MONOCYTES % (AUTO) 7.4 % (3.0-13.0); NEUTROPHILS # (AUTO) 9.3 K/uL (1.8-7.7); PLATELET COUNT (AUTO) 164 K/uL (130-400); RED BLOOD CELL COUNT(AUTO) 3.94 MIL/uL (4.50-6.20); RED CELL DISTRIBUTION WIDTH 13.7 % (11.0-15.5); WHITE BLOOD COUNT (AUTO) 10.7 K/uL (4.8-10.8)
--- NOTE | 2024-11-17 15:35 | EKG ---
[facility] Test Date: 2024-11-17 Test Time: 15:32:01 Pat Name: ATIYA KEITH Department: ED Room: 304 Gender: M Ssrs Report Developer: [id number] : [id number] Requested By: FLOYD DELEON Order Number: [id number] Reading MD: Andreas Jaquez Measurements Intervals [place] Rate: 63 P: 15 WA: 72 QRS: 74 QRSD: 112 T: 25 QT: 410 QTc: 414 Interpretive Statements Sinus rhythm Atrial premature complex Incomplete right bundle branch block Compared to ECG 06/20/2024 11:55:13 Atrial premature complex(es) now present Sinus arrhythmia no longer present Myocardial infarct finding no longer present Electronically Signed On 11-18-2024 16:59:10 CLOTHING CONSULTANT by Andreas Jaquez Please click the below link to view image of tracing.
--- NOTE | 2024-11-17 15:39 | HMCIMG ---
Exam Type: CHEST 1VW Clinical Information: Shortness of breath Comparison: None Findings: The lungs are clear of infiltrates. The heart is enlarged in size. The bony and soft tissue structures of the chest are unremarkable. Left cardiac pacemaker is noted with leads in place. Impression: Clear lungs.
[2024-11-17 15:42] LABS: INR 1.07 (0.85-1.15); PROTHROMBIN TIME 11.9 SEC (9.6-11.6)
[2024-11-17 15:44] LABS: PARTIAL THROMBOPLASTIN TIME 31.9 SEC (26.3-35.5)
[2024-11-17 15:46] LABS: POTASSIUM 4.2 mmol/L (3.5-5.1)
[2024-11-17 16:14] LABS: B-TYPE NATRIURETIC PEPTIDE 148 pg/mL (0-100)
[2024-11-17] MEDS: Solu-medROL 125MG VIAL IVP ONE (16:42)
[2024-11-17] MEDS ORDERED: AZITHROMYCIN 500MG+NS 250ML 250 ML IVPB SCH (17:30)
[2024-11-17] MEDS ORDERED: cefTRIAXone 1G VIAL IVPB SCH (17:30)
--- NOTE | 2024-11-17 17:44 | ERN ---
General Chief Complaint: Shortness of Breath Stated Complaint: SOB Time Seen by MD: 15:01 History of Present Illness Initial Comments 84-year-old male history of COPD came in for shortness for breath cough fever chills going on for the past few days. Patient is a was has no concerns. Allergies: Coded Allergies: albuterol (Unverified Allergy, Unknown, 07/04/23) codeine (Verified Allergy, Unknown, 03/28/19) guaifenesin (Verified Allergy, Unknown, 03/28/19) Home Meds Active Scripts Losartan Potassium (Losartan Potassium) 50 Mg Tablet, 50 MG PO DAILY, #30 TAB 2 Refills Prov:AWADOTTONIEL RONELEdmund CABRERAP 05/27/22 Reported Medications Tamsulosin HCl (Flomax) 0.4 Mg Cap.er.24h, 0.4 MG PO DAILY, CAPSULE.DR 06/17/24 Metoprolol Succinate (Metoprolol Succinate) 100 Mg Tab.er.24h, 50 MG PO DAILY, TAB 08/21/23 Esomeprazole Magnesium (Nexium) 20 Mg Capsule.dr, 20 MG PO DAILY, CAP 07/05/23 Cilostazol (Cilostazol) 50 Mg Tablet, 50 MG PO BID, TAB 07/05/23 Atorvastatin Calcium (Atorvastatin Calcium) 40 Mg Tablet, 1 TAB PO HS 07/05/23 Zinc Gluconate (Zinc) 50 Mg Tablet, 500 MG PO DAILY, TAB 05/24/22 Cholecalciferol (Vitamin D3) (Vitamin D3) 2,400 Unit/Ml Liquid, 2000 UNIT PO DAILY 05/24/22 Ascorbic Acid (Vitamin C) 1,000 Mg Tablet, 1000 MG PO DAILY, TAB 05/24/22 Vitamin B Complex (Vitamin B Complex) 1 Each Tablet, 1 EACH PO DAILY, TAB 05/24/22 Nitroglycerin (Nitroglycerin) 0.4 Mg Tab.subl, 0.4 MG SL AD, TAB.SL 05/24/22 Past Medical History Past Medical History: CHF, COPD Medical History Other: PACEMAKER Past Surgical History: Pacer/AICD Surgical History Other: BACK, NECK Family History Family History: HTN Social History Social History: ETOH, Lives with family ROS Dictation CONSTITUTIONAL: Negative except for HPI HEAD/FACE: Negative except for HPI EENT: Negative except for HPI RESPIRATORY: Negative except for HPI GASTROINTESTINAL/ABDOMINAL: Negative except for HPI GENITOURINARY: Negative except for HPI MUSCULOSKELETAL: Negative except for HPI INTEGUMENTARY: Negative except for HPI NEUROLOGICAL/PSYCH: Negative except for HPI HEMATOLOGIC/LYMPHATIC: Negative except for HPI All Systems Negative, Except as noted above. 13 point review of systems assessed and all negative except for above. Physical Exam Physical Exam Dictation Vital Signs reviewed General Appearance: Alert, oriented x 3, no acute distress, well developed, nourished. Head and Face: non-traumatic. Eyes: PERRL, pink conjunctivas, eyelid no trauma, anterior chamber with arcus senilis. Ears: Pinnas intact and no signs of trauma or erythema ear canals clear and no discharge TM no erythema Nose: No discharge, no bleeding. Oropharynx: Mouth normal, tongue pink, pharynx clear,no erythema, tonsils no exudates, no abscesses noted, mucous membrane moist Neck: Supple, non-tender, no thyromegaly, no masses, no JVD, no bruits Breast:Deferred Chest:No tenderness, no crepitus, no paradoxical movement, no retractions Lungs:Clear, well-ventilated, symmetric, no rales, no wheezing, no rhonchi, no stridor, good breath sounds bilaterally Heart: Regular rate, regular rhythm, no murmur, no gallops Vascular: no peripheral edema, Abdomen: Soft, positive bowel sounds, nondistended, no guarding, nontender, no rebound, no masses no hepatomegaly, no splenomegaly, no Muro's sign, no hernias. Rectal: Deferred Genital: Deferred Neurological: Normal speech, motor function intact, sensory function intact Musculoskeletal: Neck nontender, full range of motion, back nontender, full range of motion, Extremities: nontender, full range of motion Skin: Color pink, dry, no turgor, no rash, no lacerations, no abrasions, no contusions. Lymphatic: Deferred Results Laboratory and Microbiology Lab and Micro Result Laboratory Tests Test 11/17/24 15:13 White Blood Count 10.7 K/uL (4.8-10.8) Red Blood Count 3.94 MIL/uL (4.50-6.20) L Hemoglobin 12.6 g/dL (14.0-18.0) L Hematocrit 36.3 % (42-54) L Mean Corpuscular Volume 92.1 fL (79-99) Mean Corpuscular Hemoglobin 32.0 pg (27.0-33.0) Mean Corpuscular Hemoglobin Concent 34.7 g/dL (32.0-36.0) Red Cell Distribution Width 13.7 % (11.0-15.5) Platelet Count 164 K/uL (130-400) Mean Platelet Volume 10.2 fL (7.5-10.5) Immature Granulocyte % (Auto) 0.8 % (0-1) Neutrophils (%) (Auto) 87.0 % (40.0-77.0) H Lymphocytes (%) (Auto) 3.6 % (21.0-51.0) L Monocytes (%) (Auto) 7.4 % (3.0-13.0) Eosinophils (%) (Auto) 0.8 % (0.0-8.0) Basophils (%) (Auto) 0.4 % (0.0-5.0) Neutrophils # (Auto) 9.3 K/uL (1.8-7.7) H Lymphocytes # (Auto) 0.4 K/uL (1.0-4.8) L Monocytes # (Auto) 0.8 K/uL (0.1-1.0) Eosinophils # (Auto) 0.09 K/uL (0.00-0.70) Basophils # (Auto) 0.04 K/uL (0.00-0.20) Absolute Immature Granulocyte (auto 0.09 K/uL (0-1) Nucleated Red Blood Cells 0.0 % (0.0-0.19) White Cell Morphology Comment See comments Prothrombin Time 11.9 SEC (9.6-11.6) H Prothromb Time International Ratio 1.07 (0.85-1.15) Activated Partial Thromboplast Time 31.9 SEC (26.3-35.5) Sodium Level 131 mmol/L (136-145) L Potassium Level 4.2 mmol/L (3.5-5.1) Chloride Level 97 mmol/L (101-111) L Carbon Dioxide Level 30 mmol/L (21-32) Blood Urea Nitrogen 9 mg/dL (7-18) Creatinine 1.0 mg/dL (0.5-1.3) Glomerular Filtration Rate Calc 75 mL/min (>90) Random Glucose 91 mg/dL (70-105) Lactic Acid Level 2.1 mmol/L (0.8-2.5) Total Calcium 8.5 mg/dL (8.5-10.1) Troponin I High Sensitivity 16 ng/L (4-75) B-Type Natriuretic Peptide 148 pg/mL (0-100) H Procalcitonin < 0.05 ng/mL (0.05-0.5) L MDM MDM: Differential diagnosis: Rationale: Tests considered and ordered secondary to shared decision making include: Previous outside records reviewed: Old ER visits. Risk of complication and/or morbidity or mortality of patient management: None Medications-Per medication reconciliation Need for hospitalization: Patient does meet criteria for hospitalization. Need for emergency major/minor surgery: No There are no social concerns with this patient. Prescription drug management Prescriptions will include symptomatic care Patient's prior external medical records from other ER visits were reviewed by me as indicated. Prior testing and results from previous visits were reviewed. Prior tests were taken into account with medical decision making and resource utilization, independent historian/historians were used to obtain complete medical history. I independently interpreted the test that were performed, results were reviewed by me and considered findings on radiology if ordered. Medical management and examination interpretation discussions were had by me with other qualified healthcare professionals as indicated for the patient's care. ED Course Orders Procedure Category Date Status Time 12 Lead Ekg Tracing- EKG 11/17/24 Complete Technical 15:01 Cbc With Differential LAB 11/17/24 Complete 15:01 Basic Metabolic Panel LAB 11/17/24 Complete 15:01 Covid Rna Naat LAB 11/17/24 Logged 15:01 B-Type Natriuretic LAB 11/17/24 Complete Peptide 15:01 Lactic Acid LAB 11/17/24 Complete 15:01 Procalcitonin LAB 11/17/24 Complete 15:01 Pt And Ptt LAB 11/17/24 Complete 15:01 Troponin I High LAB 11/17/24 Complete Sensitivity 15:01 Chest 1vw RAD 11/17/24 Resulted 15:01 Influenza Type A & B, LAB 11/17/24 Logged Rapid 16:24 Methylprednisolone PHA 11/17/24 Complete Succ 125mg (Solu-Medr 16:30 Admit Orders ADM 11/17/24 Transmitted 17:27 Heart Healthy Diet DIET 11/18/24 Transmitted Breakfast Cbc With Differential LAB 11/17/24 Logged 17:27 Basic Metabolic Panel LAB 11/17/24 Logged 17:27 Oxygen By Nc/Pulse Ox CPOE 11/17/24 Transmitted 17:27 Continue Home Meds As CPOE 11/17/24 Transmitted Checked 17:27 *Nursing CPOE 11/17/24 Transmitted Communication: 17:27 1/2 Ns 1000ml (0.45% PHA 11/17/24 In Process Nacl 1000ml) 17:30 Ceftriaxone 1g Vial PHA 11/17/24 In Process (Rocephine 1g Inj) 17:30 Azithromycin 500mg+Ns PHA 11/17/24 In Process 250ml (Azithromyci 17:30 Ipratropium 0.5 PHA 11/17/24 In Process Mg/2.5 Ml Inh 21:00 Methylprednisolone PHA 11/17/24 Complete Succ 40mg (Solu-Medro 17:30 Enoxaparin Sodium 40 PHA 11/18/24 In Process Mg/0.4 Ml (Lovenox) 09:00 Current Medications Medications (Trade) Dose Ordered Sig/Kandice Route PRN Reason Start Time Stop Time Status Last Admin Dose Admin Azithromycin 250 ml @ 250 mls/hr Q24H IVPB 11/17/24 17:30 11/27/24 17:29 Ceftriaxone Sodium (ROCEphine 1G INJ) 1 gm Q24H IVPB 11/17/24 17:30 11/27/24 17:29 Enoxaparin Sodium (Lovenox) 40 mg DAILY SQ 11/18/24 09:00 12/18/24 08:59 Ipratropium [place] (AtrovENT UD) 0.5 mg BID ONCE IH 11/17/24 21:00 11/17/24 21:01 Methylprednisolone Sodium Succinate (Solu-medROL 40MG) 80 mg ONCE ONCE IVP 11/17/24 17:30 11/17/24 17:34 DC Methylprednisolone Sodium Succinate (Solu-medROL 125MG) 125 mg ONCE ONCE IVP 11/17/24 16:30 11/17/24 16:31 DC 11/17/24 16:42 Sodium Chloride 1,000 ml @ 75 mls/hr [id number] IV 11/17/24 17:30 12/17/24 17:29 Vital Signs Date Time Temp Pulse Resp B/P (MAP) Pulse Ox O2 Delivery O2 Flow Rate FiO2 11/17/24 14:50 98.2 65 16 162/53 98 Room Air* 0 21 11/17/24 14:26 100.8 71 18 146/67 95 Room Air 0 DX & DISP Disposition: Inpatient Departure Impression: Primary Impression: Pneumonitis Additional Impression: COPD (chronic obstructive pulmonary disease) Condition: Stable Referrals: DON CALDERON MD (PCP) FLOYD DELEON MD Nov 17, 2024 17:44
[2024-11-17 18:29] LABS: SARS-CoV-2, RNA, NAAT NEGATIVE SARS CoV-2 (NEGATIVE)
[2024-11-17 18:33] LABS: INFLUENZA TYPE A Negative For Type A (NEGATIVE); INFLUENZA TYPE B Negative For Type B (NEGATIVE)
[2024-11-17] MEDS ORDERED: DULO30CA52 PO (18:35)
[2024-11-17] MEDS ORDERED: FURO20TA4 PO (18:35)
[2024-11-17] MEDS ORDERED: METO100T14 PO (18:35)
[2024-11-17] MEDS ORDERED: CLOP75TA32 PO (18:35)
[2024-11-17] MEDS ORDERED: APIX5TAB PO (18:35)
[2024-11-17] MEDS ORDERED: TAMSULOSIN (18:35)
[2024-11-17] MEDS ORDERED: METO50 PO (18:35)
[2024-11-17] MEDS ORDERED: BUSP5TAB3 PO (18:35)
[2024-11-17] MEDS ORDERED: MONT-39 PO (18:35)
[2024-11-17] MEDS ORDERED: FLUT16H EN (18:35)
[2024-11-17] MEDS ORDERED: ALEN70TA80 PO (18:35)
[2024-11-17] MEDS: cefTRIAXone 1G VIAL IVPB SCH (19:24)
[2024-11-17] MEDS: Solu-medROL 40MG VIAL IVP ONE (19:25)
[2024-11-17] MEDS: AZITHROMYCIN 500MG+NS 250ML 250 ML IVPB SCH (19:27)
[2024-11-17] MEDS: 1/2 NS 1000ML 1,000 ML IV SCH (19:32)
[2024-11-17 20:30] VITALS: BP 159/87; PULSE 82; RESP 21; TEMP 98.2
[2024-11-17] MEDS ORDERED: FUROSEMIDE PO (22:00)
[2024-11-17] MEDS ORDERED: BENZONATATE PO (22:00)
--- NOTE | 2024-11-17 22:07 | HP ---
HISTORY AND PHYSICAL NOTE DATE OF CONSULTATION: 11/17/24 REASON FOR CONSULTATION: cough and congestion x 1 d HISTORY OF PRESENT ILLNESS: 84-year-old male history of COPD came in for shortness for breath cough fever chills going on for the past few days. Patient is a was has no concerns. Allergies: Coded Allergies: albuterol (Unverified Allergy, Unknown, 07/04/23) codeine (Verified Allergy, Unknown, 03/28/19) guaifenesin (Verified Allergy, Unknown, 03/28/19) Home Meds Active Scripts Losartan Potassium (Losartan Potassium) 50 Mg Tablet, 50 MG PO DAILY, #30 TAB 2 Refills Prov:AWAD,BRET O CUT TO LENGTH OPERATOR 05/27/22 Reported Medications Tamsulosin HCl (Flomax) 0.4 Mg Cap.er.24h, 0.4 MG PO DAILY, CAPSULE.DR 06/17/24 Metoprolol Succinate (Metoprolol Succinate) 100 Mg Tab.er.24h, 50 MG PO DAILY, TAB 08/21/23 Esomeprazole Magnesium (Nexium) 20 Mg Capsule.dr, 20 MG PO DAILY, CAP 07/05/23 Cilostazol (Cilostazol) 50 Mg Tablet, 50 MG PO BID, TAB 07/05/23 Atorvastatin Calcium (Atorvastatin Calcium) 40 Mg Tablet, 1 TAB PO HS 07/05/23 Zinc Gluconate (Zinc) 50 Mg Tablet, 500 MG PO DAILY, TAB 05/24/22 Cholecalciferol (Vitamin D3) (Vitamin D3) 2,400 Unit/Ml Liquid, 2000 UNIT PO DAILY 05/24/22 Ascorbic Acid (Vitamin C) 1,000 Mg Tablet, 1000 MG PO DAILY, TAB 05/24/22 Vitamin B Complex (Vitamin B Complex) 1 Each Tablet, 1 EACH PO DAILY, TAB 05/24/22 Nitroglycerin (Nitroglycerin) 0.4 Mg Tab.subl, 0.4 MG SL AD, TAB.SL 05/24/22 Past History Past Medical History Past Medical History: CHF, COPD Medical History Other: PACEMAKER Past Surgical History: Pacer/AICD Surgical History Other: BACK, NECK Family History Family History: HTN Social History Social History: ETOH, Lives with family Review of Systems ROS Dictation CONSTITUTIONAL: Negative except for HPI HEAD/FACE: Negative except for HPI EENT: Negative except for HPI RESPIRATORY: Negative except for HPI GASTROINTESTINAL/ABDOMINAL: Negative except for HPI GENITOURINARY: Negative except for HPI MUSCULOSKELETAL: Negative except for HPI INTEGUMENTARY: Negative except for HPI NEUROLOGICAL/PSYCH: Negative except for HPI HEMATOLOGIC/LYMPHATIC: Negative except for HPI All Systems Negative, Except as noted above. 13 point review of systems assessed and all negative except for above. ALLERGIES: Coded Allergies: albuterol (Unverified Allergy, Unknown, 07/04/23) codeine (Verified Allergy, Unknown, 03/28/19) guaifenesin (Verified Allergy, Unknown, 03/28/19) HOME MEDS: Active Scripts Losartan Potassium (Losartan Potassium) 50 Mg Tablet, 50 MG PO DAILY, #30 TAB 2 Refills Prov:BRET AWAD 05/27/22 Reported Medications [Benzonatate] No Conflict Check, 100 MG PO BID 11/17/24 [Furosemide] No Conflict Check, 30 MG PO DAILY 11/17/24 Buspirone HCl (Buspirone HCl) 5 Mg Tablet, 1 TAB PO BID 11/17/24 Duloxetine HCl (Duloxetine HCl) 30 Mg Capsule.dr, 1 CAP PO DAILY 11/17/24 Clopidogrel Bisulfate (Clopidogrel) 75 Mg Tablet, 1 TAB PO DAILY 11/17/24 [Tamsulosin] No Conflict Check 11/17/24 Metoprolol Tartrate (Metoprolol Tartrate) 100 Mg Tablet, 1 TAB PO BID 11/17/24 Apixaban (Eliquis) 5 Mg Tablet, 1 TAB PO BID 11/17/24 Alendronate Sodium (Alendronate Sodium) 70 Mg Tablet, 1 TAB PO QWEEK 11/17/24 Montelukast Sodium (Montelukast Sodium) 10 Mg Tablet, 1 TAB PO HS 11/17/24 Fluticasone Propionate (Flonase Nasal [place]) 50 Mcg/Actuation [place], 1 SPRY EN BID PRN for NASAL CONGESTION 11/17/24 Furosemide (Furosemide) 20 Mg Tablet, 1 TAB PO DAILY 11/17/24 Metoprolol Tartrate (Lopressor 50Mg Tab) 50 Mg Tab, 1 TAB PO BID 11/17/24 Tamsulosin HCl (Flomax) 0.4 Mg Cap.er.24h, 0.4 MG PO DAILY, CAPSULE.DR 06/17/24 Metoprolol Succinate (Metoprolol Succinate) 100 Mg Tab.er.24h, 50 MG PO DAILY, TAB 08/21/23 Esomeprazole Magnesium (Nexium) 20 Mg Capsule.dr, 20 MG PO DAILY, CAP 07/05/23 Cilostazol (Cilostazol) 50 Mg Tablet, 50 MG PO BID, TAB 07/05/23 Atorvastatin Calcium (Atorvastatin Calcium) 40 Mg Tablet, 1 TAB PO HS 07/05/23 Zinc Gluconate (Zinc) 50 Mg Tablet, 500 MG PO DAILY, TAB 05/24/22 Cholecalciferol (Vitamin D3) (Vitamin D3) 2,400 Unit/Ml Liquid, 2000 UNIT PO DAILY 05/24/22 Ascorbic Acid (Vitamin C) 1,000 Mg Tablet, 1000 MG PO DAILY, TAB 05/24/22 Vitamin B Complex (Vitamin B Complex) 1 Each Tablet, 1 EACH PO DAILY, TAB 05/24/22 Nitroglycerin (Nitroglycerin) 0.4 Mg Tab.subl, 0.4 MG SL AD, TAB.SL 05/24/22 INPATIENT MEDS: Current Medications Medications Dose Ordered Sig/Kandice Start Time Stop Time Status Last Admin Sodium Chloride 1,000 ml @ 75 mls/hr [id number] 11/17/24 17:30 12/17/24 17:29 11/17/24 19:32 Azithromycin 250 ml @ 250 mls/hr Q24H 11/17/24 19:00 11/27/24 18:59 11/17/24 19:27 Ceftriaxone Sodium 1 gm Q24H 11/17/24 20:00 11/27/24 19:59 11/17/24 19:24 Apixaban 5 mg BID 11/17/24 22:30 12/17/24 22:29 Atorvastatin Calcium 40 mg HS 11/18/24 21:00 12/18/24 20:59 Clopidogrel Bisulfate 75 mg DAILY 11/18/24 09:00 12/18/24 08:59 Losartan Potassium 50 mg DAILY 11/18/24 09:00 12/18/24 08:59 Nitroglycerin 0.4 mg AD 11/17/24 22:00 12/17/24 21:59 Tamsulosin HCl 0.4 mg DAILY 11/18/24 09:00 12/18/24 08:59 Miscellaneous Medication 1,000 mg DAILY 11/18/24 09:00 12/18/24 08:59 UNV Miscellaneous Medication 2,000 unit DAILY 11/18/24 09:00 12/18/24 08:59 UNV Miscellaneous Medication 20 mg DAILY 11/18/24 09:00 12/18/24 08:59 UNV Miscellaneous Medication 1 each DAILY 11/18/24 09:00 12/18/24 08:59 UNV Miscellaneous Medication 500 mg DAILY 11/18/24 09:00 12/18/24 08:59 UNV VITAL SIGNS Vital Signs Date Time Temp Pulse Resp B/P (MAP) Pulse Ox O2 Delivery O2 Flow Rate FiO2 11/17/24 20:30 98.2 82 21 159/87 96 Room Air 11/17/24 14:50 98.2 65 16 162/53 98 Room Air* 0 21 11/17/24 14:26 100.8 71 18 146/67 95 Room Air 0 PHYSICAL EXAM Physical Exam Physical Exam Physical Exam Dictation Vital Signs reviewed General Appearance: Alert, oriented x 3, no acute distress, well developed, nourished. Head and Face: non-traumatic. Eyes: PERRL, pink conjunctivas, eyelid no trauma, anterior chamber with arcus senilis. Ears: Pinnas intact and no signs of trauma or erythema ear canals clear and no discharge TM no erythema Nose: No discharge, no bleeding. Oropharynx: Mouth normal, tongue pink, pharynx clear,no erythema, tonsils no exudates, no abscesses noted, mucous membrane moist Neck: Supple, non-tender, no thyromegaly, no masses, no JVD, no bruits Breast:Deferred Chest:No tenderness, no crepitus, no paradoxical movement, no retractions Lungs:Clear, well-ventilated, symmetric, no rales, no wheezing, no rhonchi, no stridor, good breath sounds bilaterally Heart: Regular rate, regular rhythm, no murmur, no gallops Vascular: no peripheral edema, Abdomen: Soft, positive bowel sounds, nondistended, no guarding, nontender, no rebound, no masses no hepatomegaly, no splenomegaly, no Muro's sign, no hernias. Rectal: Deferred Genital: Deferred Neurological: Normal speech, motor function intact, sensory function intact Musculoskeletal: Neck nontender, full range of motion, back nontender, full range of motion, Extremities: nontender, full range of motion Skin: Color pink, dry, no turgor, no rash, no lacerations, no abrasions, no contusions. Lymphatic: Deferred LABORATORY RESULTS Laboratory Tests 11/17/24 15:13: White Blood Count 10.7, Red Blood Count 3.94, Hemoglobin 12.6, Hematocrit 36.3, Mean Corpuscular Volume 92.1, Mean Corpuscular Hemoglobin 32.0, Mean Corpuscular Hemoglobin Concent 34.7, Red Cell Distribution Width 13.7, Platelet Count 164, Mean Platelet Volume 10.2, Immature Granulocyte % (Auto) 0.8, Neutrophils (%) (Auto) 87.0, Lymphocytes (%) (Auto) 3.6, Monocytes (%) (Auto) 7.4, Eosinophils (%) (Auto) 0.8, Basophils (%) (Auto) 0.4, Neutrophils # (Auto) 9.3, Lymphocytes # (Auto) 0.4, Monocytes # (Auto) 0.8, Eosinophils # (Auto) 0.09, Basophils # (Auto) 0.04, Absolute Immature Granulocyte (auto 0.09, Nucleated Red Blood Cells 0.0, White Cell Morphology Comment See comments, Prothrombin Time 11.9, Prothromb Time International Ratio 1.07, Activated Partial Thromboplast Time 31.9, Sodium Level 131, Potassium Level 4.2, Chloride Level 97, Carbon Dioxide Level 30, Blood Urea Nitrogen 9, Creatinine 1.0, Glomerular Filtration Rate Calc 75, Random Glucose 91, Lactic Acid Level 2.1, Total Calcium 8.5, Troponin I High Sensitivity 16, B-Type Natriuretic Peptide 148, Procalcitonin < 0.05 11/17/24 18:07: Influenza Type A Antigen Negative For Type A, Influenza Type B Antigen Negative For Type B, SARS-CoV-2, RNA, NAAT NEGATIVE SARS CoV-2 11/17/24 21:16: Lactic Acid Level 2.5 PROBLEM LIST: (1) Leukocytosis ICD Codes: D72.829 - Elevated white blood cell count, unspecified (2) Acute febrile illness ICD Codes: R50.9 - Fever, unspecified (3) Community acquired pneumonia ICD Codes: J18.9 - Pneumonia, unspecified organism (4) COPD exacerbation ICD Codes: J44.1 - Chronic obstructive pulmonary disease with (acute) exacerbation (5) CAD (coronary artery disease) ICD Codes: I25.10 - Atherosclerotic heart disease of [place] coronary artery without angina pectoris (6) Atrial fibrillation with slow ventricular response ICD Codes: I48.91 - Unspecified atrial fibrillation PLAN iv antibiotics nebs steroids telemtry ROSINA MORA MD Nov 17, 2024 22:07
[2024-11-17] MEDS: APIXaban 5 MG TABLET PO SCH (22:52)
[2024-11-17] MEDS: metoPROLOL tartRATE 50 MG TAB PO SCH (22:52)
[2024-11-17 23:47] VITALS: BP 134/66; PULSE 62; RESP 18; TEMP 98.3
[2024-11-17] MEDS: IpraTROPium 0.5 MG/2.5 ML INH IH ONE (23:53)
[2024-11-17 23:55] VITALS: PULSE 78; RESP 20
[2024-11-17 23:56] VITALS: PULSE 79; RESP 20; O2SAT 95
[2024-11-18] VITALS (11 sets, daily range): BP systolic 141–174; BP diastolic 68–86; PULSE 60–87; RESP 16–20; TEMP 97.6–98.4; O2SAT 94–97
[2024-11-18 05:31] LABS: BASOPHILS # (AUTO) 0.01 K/uL (0.00-0.20); BASOPHILS % (AUTO) 0.1 % (0.0-5.0); HEMATOCRIT 37.5 % (42-54); IMMATURE GRANULOCYTE ABSOLUTE 0.07 K/uL (0-1); LYMPHOCYTES # (AUTO) 0.2 K/uL (1.0-4.8); LYMPHOCYTES % (AUTO) 2.6 % (21.0-51.0); MEAN CORPUSCULAR HGB CONC 34.1 g/dL (32.0-36.0); MEAN CORPUSCULAR VOLUME 93.8 fL (79-99); MONOCYTES # (AUTO) 0.1 K/uL (0.1-1.0); MONOCYTES % (AUTO) 1.3 % (3.0-13.0); NEUTROPHILS # (AUTO) 8.8 K/uL (1.8-7.7); NEUTROPHILS % (AUTO) 95.2 % (40.0-77.0); PLATELET COUNT (AUTO) 152 K/uL (130-400); RED CELL DISTRIBUTION WIDTH 13.3 % (11.0-15.5); WHITE BLOOD COUNT (AUTO) 9.3 K/uL (4.8-10.8)
[2024-11-18 05:46] LABS: CREATININE 0.9 mg/dL (0.5-1.3)
[2024-11-18] MEDS: IpraTROPium 0.5 MG/2.5 ML INH IH ONE (07:22)
[2024-11-18] MEDS ORDERED: acetaMINOPHEN 325 MG TAB PO PRN ×2 (07:30)
[2024-11-18] MEDS ORDERED: IpraTROPium 0.5 MG/2.5 ML INH IH PRN (08:00)
[2024-11-18] MEDS: Solu-medROL 40MG VIAL IVP SCH (08:47)
[2024-11-18] MEDS: tamSULOsin HCL 0.4 MG CAP.ER.24H PO SCH (08:47)
[2024-11-18] MEDS: ASCORBIC ACID 500 MG TAB PO SCH (08:47)
[2024-11-18] MEDS: cloPIDOgrel 75MG TAB PO SCH (08:47)
[2024-11-18] MEDS: PANTOPrazole 40 MG TAB DR PO SCH (08:48)
[2024-11-18] MEDS: LoSARTan 50 MG TABLET PO SCH (08:48)
[2024-11-18] MEDS: VITAMIN B COMPLEX 1 CAPSULE PO SCH (08:48)
[2024-11-18] MEDS: VITAMIN D3 2000 UNIT PO SCH (08:49)
[2024-11-18] MEDS: ZINC GLUCONATE PO SCH (08:49)
[2024-11-18] MEDS ORDERED: ENOXAPARIN SODIUM 40 MG/0.4 ML SYRINGE SQ SCH (09:00)
[2024-11-18] MEDS: IpraTROPium 0.5 MG/2.5 ML INH IH SCH (11:34)
[2024-11-18] MEDS: BENZONATATE 100 MG CAPSULE PO PRN (12:34)
[2024-11-18] MEDS: guaiFENesin-DM 200/20MG 10ML PO PRN (12:34)
--- NOTE | 2024-11-18 14:54 | NUR ---
SPUTUM SPECIMEN SENT BY NURSE Addendum: 11/18/24 at 1455 by GEORGIANA ARITA, RT RT Amended: Links added.
[2024-11-18] MEDS ORDERED: VITA100059 PO (18:16)
[2024-11-18] MEDS ORDERED: POTA-202 PO (18:16)
[2024-11-18] MEDS: atorVAStatin 40 MG TABLET PO SCH (20:06)
[2024-11-18] MEDS: NITROGLYCERIN 0.4 MG SL TAB SL SCH (21:24)
--- NOTE | 2024-11-18 21:30 | NUR ---
chest pain patient began complaining of chest pain, describing it as tightness. i called telemetry, he running afib 105. patient states he is normally in the 60's. Patient 1997 vitals showed bp 174/86, patient does not have any PRN bp medications. I administered 0.4mg nitroglycerin sublingual x3 doses. after the first dose, a message was sent to dr mitchell to report. at 2134 patient bp was 127/93 HR 92. I administered the second dose of nitro, bp at 2140 was 137/91 HR 60. I adminstered the third dose, at 2145 bp was 144/75 HR [address] I [address] mitchell answering service at 2148.
--- NOTE | 2024-11-18 21:58 | NUR ---
PATIENT STATES HE DOES NOT FEEL ANY DIFFERENT
--- NOTE | 2024-11-18 22:03 | NUR ---
PAGED DR MORA AGAIN, ANSWERING SERVICE STATES SHE CAN ONLY PAGE HIM EVERY 30 MINS
--- NOTE | 2024-11-18 22:06 | NUR ---
PAGED BENCHMARK TO REPORT PATIENTS STATUS. PATIENTS BP NOW IS 106/79 HR 64
--- NOTE | 2024-11-18 22:18 | PN ---
PROGRESS NOTE PROGRESS NOTE DATE OF PROGRESS NOTE: 11/18/24 SUBJECTIVE: no new complaints VITAL SIGNS Vital Signs Date Time Temp Pulse Resp B/P (MAP) Pulse Ox O2 Delivery O2 Flow Rate FiO2 11/18/24 18:43 76 18 11/18/24 18:43 N/A Room Air 21 11/18/24 16:00 97.5 141/71 95 11/18/24 08:00 0 PHYSICAL EXAM: Physical Exam Physical Exam Physical Exam Dictation Vital Signs reviewed General Appearance: Alert, oriented x 3, no acute distress, well developed, nourished. Head and Face: non-traumatic. Eyes: PERRL, pink conjunctivas, eyelid no trauma, anterior chamber with arcus senilis. Ears: Pinnas intact and no signs of trauma or erythema ear canals clear and no discharge TM no erythema Nose: No discharge, no bleeding. Oropharynx: Mouth normal, tongue pink, pharynx clear,no erythema, tonsils no exudates, no abscesses noted, mucous membrane moist Neck: Supple, non-tender, no thyromegaly, no masses, no JVD, no bruits Breast:Deferred Chest:No tenderness, no crepitus, no paradoxical movement, no retractions Lungs:Clear, well-ventilated, symmetric, no rales, no wheezing, no rhonchi, no stridor, good breath sounds bilaterally Heart: Regular rate, regular rhythm, no murmur, no gallops Vascular: no peripheral edema, Abdomen: Soft, positive bowel sounds, nondistended, no guarding, nontender, no rebound, no masses no hepatomegaly, no splenomegaly, no Muro's sign, no hernias. Rectal: Deferred Genital: Deferred Neurological: Normal speech, motor function intact, sensory function intact Musculoskeletal: Neck nontender, full range of motion, back nontender, full range of motion, Extremities: nontender, full range of motion Skin: Color pink, dry, no turgor, no rash, no lacerations, no abrasions, no contusions. Lymphatic: Deferred LABORATORY: Laboratory Result(s) Test 11/18/24 04:54 White Blood Count 9.3 K/uL (4.8-10.8) Red Blood Count 4.00 MIL/uL (4.50-6.20) Hemoglobin 12.8 g/dL (14.0-18.0) Hematocrit 37.5 % (42-54) Mean Corpuscular Volume 93.8 fL (79-99) Mean Corpuscular Hemoglobin 32.0 pg (27.0-33.0) Mean Corpuscular Hemoglobin Concent 34.1 g/dL (32.0-36.0) Red Cell Distribution Width 13.3 % (11.0-15.5) Platelet Count 152 K/uL (130-400) Mean Platelet Volume 10.1 fL (7.5-10.5) Immature Granulocyte % (Auto) 0.8 % (0-1) Neutrophils (%) (Auto) 95.2 % (40.0-77.0) Lymphocytes (%) (Auto) 2.6 % (21.0-51.0) Monocytes (%) (Auto) 1.3 % (3.0-13.0) Eosinophils (%) (Auto) 0.0 % (0.0-8.0) Basophils (%) (Auto) 0.1 % (0.0-5.0) Neutrophils # (Auto) 8.8 K/uL (1.8-7.7) Lymphocytes # (Auto) 0.2 K/uL (1.0-4.8) Monocytes # (Auto) 0.1 K/uL (0.1-1.0) Eosinophils # (Auto) 0.00 K/uL (0.00-0.70) Basophils # (Auto) 0.01 K/uL (0.00-0.20) Absolute Immature Granulocyte (auto 0.07 K/uL (0-1) Nucleated Red Blood Cells 0.0 % (0.0-0.19) Sodium Level 134 mmol/L (136-145) Potassium Level 4.0 mmol/L (3.5-5.1) Chloride Level 98 mmol/L (101-111) Carbon Dioxide Level 28 mmol/L (21-32) Blood Urea Nitrogen 11 mg/dL (7-18) Creatinine 0.9 mg/dL (0.5-1.3) Glomerular Filtration Rate Calc 85 mL/min (>90) Random Glucose 162 mg/dL (70-105) Total Calcium 8.2 mg/dL (8.5-10.1) INPATIENT MEDS: Current Medications Medications Dose Ordered Sig/Kandice Start Time Stop Time Status Last Admin Sodium Chloride 1,000 ml @ 75 mls/hr [id number] 11/17/24 17:30 12/17/24 17:29 11/18/24 20:06 Azithromycin 250 ml @ 250 mls/hr Q24H 11/17/24 19:00 11/27/24 18:59 11/18/24 18:56 Ceftriaxone Sodium 1 gm Q24H 11/17/24 20:00 11/27/24 19:59 11/18/24 20:06 Apixaban 5 mg BID 11/17/24 22:30 12/17/24 22:29 11/18/24 20:06 Atorvastatin Calcium 40 mg HS 11/18/24 21:00 12/18/24 20:59 11/18/24 20:06 Clopidogrel Bisulfate 75 mg DAILY 11/18/24 09:00 12/18/24 08:59 11/18/24 08:47 Losartan Potassium 50 mg DAILY 11/18/24 09:00 12/18/24 08:59 11/18/24 08:48 Nitroglycerin 0.4 mg AD 11/17/24 22:00 12/17/24 21:59 11/18/24 21:39 Tamsulosin HCl 0.4 mg DAILY 11/18/24 09:00 12/18/24 08:59 11/18/24 08:47 Ascorbic Acid 1,000 mg DAILY 11/18/24 09:00 12/18/24 08:59 11/18/24 08:47 Home Med DAILY 11/18/24 09:00 12/18/24 08:59 Pantoprazole Sodium 40 mg DAILY 11/18/24 09:00 12/18/24 08:59 11/18/24 08:48 Vitamin B Complex/ Folic Acid 1 cap DAILY 11/18/24 09:00 12/18/24 08:59 11/18/24 08:48 Home Med DAILY 11/18/24 09:00 12/18/24 08:59 Metoprolol Tartrate 100 mg BID 11/17/24 23:00 12/17/24 22:59 11/18/24 20:06 Acetaminophen 650 mg Q4H PRN 11/18/24 07:30 12/18/24 07:29 Acetaminophen 650 mg Q6H PRN 11/18/24 07:30 12/18/24 07:29 Ipratropium [place] 0.5 MG [id number] 11/18/24 12:00 12/18/24 11:59 11/18/24 18:43 Ipratropium [place] 0.5 MG Q4H PRN 11/18/24 08:00 12/18/24 07:59 Methylprednisolone Sodium Succinate 40 mg BID 11/18/24 09:00 12/18/24 08:59 11/18/24 20:06 Guaifenesin/ Dextromethorphan 10 ml Q4H PRN 11/18/24 12:00 12/18/24 11:59 11/18/24 12:34 Benzonatate 200 mg Q6H6 PRN 11/18/24 12:30 12/18/24 12:29 11/18/24 12:34 Promethazine HCl 6.25 mg Q4H PRN 11/18/24 19:30 12/18/24 19:29 PROBLEM LIST: (1) Leukocytosis ICD Code: D72.829 - Elevated white blood cell count, unspecified (2) Acute febrile illness ICD Code: R50.9 - Fever, unspecified (3) Community acquired pneumonia ICD Code: J18.9 - Pneumonia, unspecified organism (4) COPD exacerbation ICD Code: J44.1 - Chronic obstructive pulmonary disease with (acute) exacerbation (5) CAD (coronary artery disease) ICD Code: I25.10 - Atherosclerotic heart disease of [place] coronary artery without angina pectoris (6) Atrial fibrillation with slow ventricular response ICD Code: I48.91 - Unspecified atrial fibrillation PLAN: iv antibiotics nebs steroids telemtry ROSINA MORA MD Nov 18, 2024 22:18
[2024-11-19] VITALS (12 sets, daily range): BP systolic 139–188; BP diastolic 66–85; PULSE 61–89; RESP 18–20; TEMP 97.3–98.6; O2SAT 91–96
[2024-11-19] MEDS ORDERED: cloNIDine HCL 0.1 MG TABLET PO PRN
[2024-11-19] MEDS: LORazepam 0.5 MG TABLET PO ONE (01:16)
[2024-11-19] MEDS: ASPIRIN 325MG TAB PO ONE (01:17)
[2024-11-19] MEDS: PROMETHAZINE HCL 6.25 MG/5 ML PO PRN (03:49)
[2024-11-19 07:54] LABS: BASOPHILS # (AUTO) 0.02 K/uL (0.00-0.20); BASOPHILS % (AUTO) 0.1 % (0.0-5.0); HEMATOCRIT 34.7 % (42-54); IMMATURE GRANULOCYTE ABSOLUTE 0.07 K/uL (0-1); LYMPHOCYTES # (AUTO) 0.4 K/uL (1.0-4.8); LYMPHOCYTES % (AUTO) 2.8 % (21.0-51.0); MEAN CORPUSCULAR HEMOGLOBIN 32.1 pg (27.0-33.0); MEAN CORPUSCULAR HGB CONC 35.7 g/dL (32.0-36.0); MEAN CORPUSCULAR VOLUME 89.9 fL (79-99); MONOCYTES # (AUTO) 0.7 K/uL (0.1-1.0); NEUTROPHILS # (AUTO) 13.1 K/uL (1.8-7.7); NEUTROPHILS % (AUTO) 91.6 % (40.0-77.0); PLATELET COUNT (AUTO) 189 K/uL (130-400); RED BLOOD CELL COUNT(AUTO) 3.86 MIL/uL (4.50-6.20); RED CELL DISTRIBUTION WIDTH 13.3 % (11.0-15.5); WHITE BLOOD COUNT (AUTO) 14.3 K/uL (4.8-10.8)
[2024-11-19 08:05] LABS: CREATININE 0.9 mg/dL (0.5-1.3); MAGNESIUM 1.9 mg/dL (1.80-2.40)
[2024-11-19 08:21] LABS: B-TYPE NATRIURETIC PEPTIDE 186 pg/mL (0-100)
--- NOTE | 2024-11-19 08:34 | EKG ---
[facility] Test Date: 2024-11-18 Test Time: 22:20:37 Pat Name: ATIYA KEITH Department: [facility] Room: 304 1 Gender: M [employer]ing Department: [id number] : 1940 Requested By: ROSA SALTER Order Number: [id number] Reading MD: Chriss Carter Measurements Intervals [place] Rate: 92 P: 0 VT: 0 QRS: 81 QRSD: 116 T: 19 QT: 392 QTc: 484 Interpretive Statements Atrial fibrillation with a competing junctional pacemaker with premature ventricular or aberrantly conducted complexes Prolonged QT Compared to ECG 11/17/2024 15:32:01 Ventricular premature complex(es) now present Prolonged QT interval now present Sinus rhythm no longer present Atrial premature complex(es) no longer present Incomplete right bundle-branch block no longer present Electronically Signed On 11-19-2024 21:23:19 KNOCKDOWN WORKER by Chriss Carter Please click the below link to view image of tracing.
[2024-11-19] MEDS ORDERED: PHARMACY COMMUNICATION MISC SCH (09:00)
--- NOTE | 2024-11-19 09:00 | CONS ---
[facility] CONSULTATION NOTE Date Patient Seen: Nov 19, 2024 Time of Visit: 08:50 Supervising Physician: [Dr. López] Reason for Consultation: [Pneumonia] Primary Care Physician: [Dr. Gong] Outpatient Specialists: [ ] Inpatient Consults: [BIS] PROBLEM LIST: Community acquired pneumonia, POA Acute COPD exacerbation, POA NSTEMI, likely type II demand ischemia, POA Acute respiratory insufficiency, POA Chronic diastolic heart failure without exacerbation, POA Coronary artery disease, on dual antiplatelet therapy Atrial fibrillation, on Eliquis5 mg b.i.d. Hyponatremia, POA, resolved Benign prostate hyperplasia History of remote neck surgery History of remote back surgery Plan: Continue antibiotics with azithromycin and Rocephin Continue steroids with Solu-Medrol 40 mg q.12h Follow sputum culture results Supplemental oxygen as needed, wean off as tolerated Further management per primary Disposition per primary HPI: [This is an 84-year-old male with a history of hypertension, CAD, COPD, CHF who presented to the ED for evaluation of fever, cough, chills and shortness of breaths for few days prior to admission. His labs on admission were remarkable for hyponatremia at 131. WBC was 10, hemoglobin 12, platelets 164, potassium 4.2, bicarb 30, BUN nine and creatinine 1.0. His pro count was 0.05, COVID and flu swabs were negative. His troponin on admission was 16, later increased to 292 likely type 2 NSTEMI demand ischemia. His BNP was 148, lactic acid was 2.1. His INR is 1.0. He continues on azithromycin and Rocephin. White blood count is increased to 14 today, likely reactive to steroids. His CXR on admission shows a small consolidation to right-sided lung field now improved on today's CXR. He continues his Solu-Medrol 40 mg b.i.d. and Atrovent nebulizer. Patient is improved now on room air but continues with significant productive cough. Did collect sputum for culture yesterday. Has some end expiratory wheezing bilaterally. Will continue antibiotics and solumedrol. He is pending cardio consult with Dr. Jorgensen for elevated troponin.] PAST MEDICAL HX: see above PAST SURGICAL HX: noncontributory SOCIAL HISTORY: No tobacco, ETOH, or illicit drug use Coded Allergies: albuterol (Unverified Allergy, Unknown, 07/04/23) codeine (Verified Allergy, Unknown, 03/28/19) guaifenesin (Verified Allergy, Unknown, 03/28/19) REVIEW OF SYSTEMS: 12 point ROS reviewed with patient. Pertinent positives mentioned above. Otherwise negative. PHYSICAL EXAM: GENERAL: alert, weak, awake oriented x 3 HEENT: EOMI, Sclera non icteric, moist mucosa NECK: Supple, no JVD, trachea midline LUNGS: Clear breath sounds bilaterally. No wheezes HEART: Regular rate and rhythm. Normal S1 and S2, without murmurs ABD: Abdomen soft, nontender. Bowel sounds present EXT: No clubbing cyanosis or edema NEURO: Alert and oriented to person, follows commands Vital Signs (last 8hr) Date Time Temp Pulse Resp B/P (MAP) Pulse Ox O2 Delivery O2 Flow Rate FiO2 11/19/24 08:00 98.4 73 18 153/69 96 Room Air 11/19/24 06:22 77 18 11/19/24 06:22 77 18 N/A Room Air 21 11/19/24 04:00 98.2 83 18 139/79 94 Room Air LABS: Hematology Labs: Test 11/19/24 07:41 11/17/24 15:13 Range/Units White Blood Count 14.3 H 4.8-10.8 K/uL Red Blood Count 3.86 L 4.50-6.20 MIL/uL Hemoglobin 12.4 L 14.0-18.0 g/dL Hematocrit 34.7 L 42-54 % Mean Corpuscular Volume 89.9 79-99 fL Mean Corpuscular Hemoglobin 32.1 27.0-33.0 pg Mean Corpuscular Hemoglobin Concent 35.7 32.0-36.0 g/dL Red Cell Distribution Width 13.3 11.0-15.5 % Platelet Count 189 130-400 K/uL Mean Platelet Volume 10.1 7.5-10.5 fL Immature Granulocyte % (Auto) 0.5 0-1 % Neutrophils (%) (Auto) 91.6 H 40.0-77.0 % Lymphocytes (%) (Auto) 2.8 L 21.0-51.0 % Monocytes (%) (Auto) 5.0 3.0-13.0 % Eosinophils (%) (Auto) 0.0 0.0-8.0 % Basophils (%) (Auto) 0.1 0.0-5.0 % Neutrophils # (Auto) 13.1 H 1.8-7.7 K/uL Lymphocytes # (Auto) 0.4 L 1.0-4.8 K/uL Monocytes # (Auto) 0.7 0.1-1.0 K/uL Eosinophils # (Auto) 0.00 0.00-0.70 K/uL Basophils # (Auto) 0.02 0.00-0.20 K/uL Absolute Immature Granulocyte (auto 0.07 0-1 K/uL Nucleated Red Blood Cells 0.0 0.0-0.19 % White Cell Morphology Comment See comments Chemistry Labs: Test 11/19/24 07:41 11/17/24 21:16 11/17/24 15:13 Range/Units Sodium Level 134 L 136-145 mmol/L Potassium Level 4.0 3.5-5.1 mmol/L Chloride Level 101 101-111 mmol/L Carbon Dioxide Level 29 21-32 mmol/L Blood Urea Nitrogen 14 7-18 mg/dL Creatinine 0.9 0.5-1.3 mg/dL Glomerular Filtration Rate Calc 85 >90 mL/min Random Glucose 135 H 70-105 mg/dL Total Calcium 8.3 L 8.5-10.1 mg/dL Magnesium Level 1.90 1.80-2.40 mg/dL Troponin I High Sensitivity 292 *H 4-75 ng/L B-Type Natriuretic Peptide 186 H 0-100 pg/mL Lactic Acid Level 2.5 0.8-2.5 mmol/L Procalcitonin < 0.05 L 0.05-0.5 ng/mL Coagulation Labs: Test 11/17/24 15:13 Range/Units Prothrombin Time 11.9 H 9.6-11.6 SEC Prothromb Time International Ratio 1.07 0.85-1.15 Activated Partial Thromboplast Time 31.9 26.3-35.5 SEC DIAGNOSTICS / RADIOLOGY RESULTS: [Exam Type: CHEST 1VW Clinical Information: Shortness of breath Comparison: None Findings: The lungs are clear of infiltrates. The heart is enlarged in size. The bony and soft tissue structures of the chest are unremarkable. Left cardiac pacemaker is noted with leads in place. Impression: Clear lungs.] PLAN NEURO: Minimize central acting medications as possible. Maintain fall precautions, adequate lighting during the day PULMONARY: Supplemental 02 as needed. Maintain aspiration precautions at all times CARDIOVASCULAR: Follow hemodynamics. Vital signs per facility protocol GI & NUTRITION: Continue with nutritional support. Continue stool softeners and laxatives as needed. KIDNEYS & ELECTROLYTES: Strict monitoring of intake, output and overall fluid balance. Avoid nephrotoxic medications to the extent possible. Medications to be dosed according to renal function. Monitor electrolytes and replace as needed ENDOCRINE: Maintain blood glucose between 100-180 at all times. Hypoglycemia protocol in place INFECTIOUS DISEASE: Trend temperature, WBC and procalcitonin level Follow cultures, deescalate antibiotics as soon as possible. Panculture if new onset fever ONCOLOGY/HEMATOLOGY/COAGULATION: Monitor for s/s of bleeding Monitor hemoglobin, coagulation studies as needed SKIN: Pressure ulcer prevention per facility protocol Specialty mattress ORTHO/REHAB: Continue PT/OT Prophylaxis: Continue GI and DVT prophylaxis Code Status: Full Resuscitation Disposition: TBD Other: Total patient care time exceeds 35 minutes excluding all procedures. LIBERTAD DELCID Nov 19, 2024 09:00
--- NOTE | 2024-11-19 09:25 | HMCIMG ---
CHEST 1VW REASON: chest pain COMPARISON: 11/17/2024 FINDINGS: Single view of the chest was obtained. Lungs are clear. Heart size is normal. There is no pulmonary vascular congestion. Mediastinum and bony thorax appear unremarkable. There is a bipolar pacemaker in place, unchanged. IMPRESSION: 1. No acute finding, no change.
[2024-11-19] MEDS ORDERED: COMPOUND PO MISCELLANEOUS 1 EACH MISC MISC PRN (09:30)
[2024-11-19] MEDS: LIDO 2% VISC 30ML+MAG/AL/SIMETH 30ML+DICYCLOMINE 20MG 10ML PO PRN (09:50)
[2024-11-19] MEDS: BENZOCAINE/MENTH/CETYLPYRD CL 1 EACH LOZENGE MM PRN (09:50)
--- NOTE | 2024-11-19 10:19 | EKG ---
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 Operator: CONRAD : 1940 Requested By: CARLOS BUI Order Number: [id number] Reading MD: Chriss Carter Measurements Intervals [place] Rate: 90 P: 17 MI: 132 QRS: 73 QRSD: 100 T: 12 QT: 432 QTc: 528 Interpretive Statements Sinus rhythm with frequent and consecutive premature ventricular complexes Nonspecific ST abnormality Prolonged QT Incomplete RBBB Compared to ECG 11/18/2024 22:20:37 ST (T wave) deviation now present Atrial fibrillation no longer present Electronically Signed On 11-19-2024 21:26:12 ENTRY LEVEL ACCOUNTANT by Chriss Carter Please click the below link to view image of tracing.
--- NOTE | 2024-11-19 13:57 | HMCSR ---
APPROVED REPORT EXAM: Two-dimensional and M-mode echocardiogram with Doppler and color Doppler. INDICATION ICD: Chest Pain 2D Dimensions RVDd5.2 cmLVOT diam2.2 (1.8-2.4cm)LVED Vol(simp.)67.3 mL IVC diam2.1 cmLVES Vol(simp.)31.1 mL LVEF(%, simp.)54 % LA ESV INDEX (4CH)30.40 mL/m2 LA ESV INDEX (2CH)29.50 mL/m2 LA ESV INDEX (BP)30.80 mL/m2 Aortic Valve AoV VTI0.3 mAo Mean GR6.0 mmHgLVOT VTI0.20 m SUDEEP (VMAX)3.0 cm2AVA (VTI) 3.0 cm2 Mitral Valve MV E Vmax78.6 cm/sDECEL Jany142 ms MV A Vmax67.9 cm/sP 1/2 T48 ms E/A ratio1.2MVA (PHT)4.6 cm2 TDI E/E' Wfqzbn85.2E/E' Lateral9.7 Medial E' Peak V7.00 cm/sLateral E' Peak V8.10 cm/s Left Ventricle Left ventricular cavity size is normal. There is normal left ventricular wall thickness. LVEF is 50-5 5%. The left ventricular diastolic function is normal. Right Ventricle The right ventricle is moderately dilated. The right ventricular systolic function is normal. Atria The left atrium size is normal. The right atrium size is normal. Aortic Valve Aortic valve is not well visualized but no significant valvular abnormalities noted. No aortic regurg itation is present. There is no aortic valvular stenosis. Mitral Valve Mitral valve leaflets open well. There is no mitral valve regurgitation noted. There is no mitral yun ve stenosis. Tricuspid Valve The tricuspid valve leaflets appear normal. There is no tricuspid valve regurgitation noted. Pulmonic Valve Pulmonic valve is not well visualized. Great Vessels The aortic root is normal in size. The IVC is normal in size and collapses >50% with inspiration. Pericardium No pericardial effusion. Conclusion Left ventricular cavity size is normal. LVEF is 50-55%. The left ventricular diastolic function is normal. The right ventricle is moderately dilated. There is no mitral valve regurgitation noted. Pulmonic valve is not well visualized. No pericardial effusion.
[2024-11-19] MEDS: ondanSETRON 4MG INJ IVP PRN (17:36)
[2024-11-19] MEDS: hydrALAZine 25MG TABLET PO PRN (17:37)
[2024-11-19] MEDS: MELATONIN 5 MG TABLET PO SCH (20:49)
--- NOTE | 2024-11-19 22:31 | PN ---
PROGRESS NOTE PROGRESS NOTE DATE OF PROGRESS NOTE: 11/19/24 SUBJECTIVE: had chest pains overnight VITAL SIGNS Vital Signs Date Time Temp Pulse Resp B/P (MAP) Pulse Ox O2 Delivery O2 Flow Rate FiO2 11/19/24 20:00 96 Nasal Cannula* 3 32 11/19/24 20:00 98.1 72 18 153/73 PHYSICAL EXAM: Physical Exam Physical Exam Physical Exam Dictation Vital Signs reviewed General Appearance: Alert, oriented x 3, no acute distress, well developed, nourished. Head and Face: non-traumatic. Eyes: PERRL, pink conjunctivas, eyelid no trauma, anterior chamber with arcus senilis. Ears: Pinnas intact and no signs of trauma or erythema ear canals clear and no discharge TM no erythema Nose: No discharge, no bleeding. Oropharynx: Mouth normal, tongue pink, pharynx clear,no erythema, tonsils no exudates, no abscesses noted, mucous membrane moist Neck: Supple, non-tender, no thyromegaly, no masses, no JVD, no bruits Breast:Deferred Chest:No tenderness, no crepitus, no paradoxical movement, no retractions Lungs:Clear, well-ventilated, symmetric, no rales, no wheezing, no rhonchi, no stridor, good breath sounds bilaterally Heart: Regular rate, regular rhythm, no murmur, no gallops Vascular: no peripheral edema, Abdomen: Soft, positive bowel sounds, nondistended, no guarding, nontender, no rebound, no masses no hepatomegaly, no splenomegaly, no Muro's sign, no hernias. Rectal: Deferred Genital: Deferred Neurological: Normal speech, motor function intact, sensory function intact Musculoskeletal: Neck nontender, full range of motion, back nontender, full range of motion, Extremities: nontender, full range of motion Skin: Color pink, dry, no turgor, no rash, no lacerations, no abrasions, no contusions. Lymphatic: Deferred LABORATORY: Laboratory Result(s) Test 11/18/24 22:37 11/19/24 07:41 Troponin I High Sensitivity 60 ng/L (4-75) 292 ng/L (4-75) White Blood Count 14.3 K/uL (4.8-10.8) Red Blood Count 3.86 MIL/uL (4.50-6.20) Hemoglobin 12.4 g/dL (14.0-18.0) Hematocrit 34.7 % (42-54) Mean Corpuscular Volume 89.9 fL (79-99) Mean Corpuscular Hemoglobin 32.1 pg (27.0-33.0) Mean Corpuscular Hemoglobin Concent 35.7 g/dL (32.0-36.0) Red Cell Distribution Width 13.3 % (11.0-15.5) Platelet Count 189 K/uL (130-400) Mean Platelet Volume 10.1 fL (7.5-10.5) Immature Granulocyte % (Auto) 0.5 % (0-1) Neutrophils (%) (Auto) 91.6 % (40.0-77.0) Lymphocytes (%) (Auto) 2.8 % (21.0-51.0) Monocytes (%) (Auto) 5.0 % (3.0-13.0) Eosinophils (%) (Auto) 0.0 % (0.0-8.0) Basophils (%) (Auto) 0.1 % (0.0-5.0) Neutrophils # (Auto) 13.1 K/uL (1.8-7.7) Lymphocytes # (Auto) 0.4 K/uL (1.0-4.8) Monocytes # (Auto) 0.7 K/uL (0.1-1.0) Eosinophils # (Auto) 0.00 K/uL (0.00-0.70) Basophils # (Auto) 0.02 K/uL (0.00-0.20) Absolute Immature Granulocyte (auto 0.07 K/uL (0-1) Nucleated Red Blood Cells 0.0 % (0.0-0.19) Sodium Level 134 mmol/L (136-145) Potassium Level 4.0 mmol/L (3.5-5.1) Chloride Level 101 mmol/L (101-111) Carbon Dioxide Level 29 mmol/L (21-32) Blood Urea Nitrogen 14 mg/dL (7-18) Creatinine 0.9 mg/dL (0.5-1.3) Glomerular Filtration Rate Calc 85 mL/min (>90) Random Glucose 135 mg/dL (70-105) Total Calcium 8.3 mg/dL (8.5-10.1) Magnesium Level 1.90 mg/dL (1.80-2.40) B-Type Natriuretic Peptide 186 pg/mL (0-100) INPATIENT MEDS: Current Medications Medications Dose Ordered Sig/Kandice Start Time Stop Time Status Last Admin Sodium Chloride 1,000 ml @ 75 mls/hr [id number] 11/17/24 17:30 12/17/24 17:29 11/19/24 08:48 Azithromycin 250 ml @ 250 mls/hr Q24H 11/17/24 19:00 11/27/24 18:59 11/19/24 18:12 Ceftriaxone Sodium 1 gm Q24H 11/17/24 20:00 11/27/24 19:59 11/19/24 20:49 Apixaban 5 mg BID 11/17/24 22:30 12/17/24 22:29 11/19/24 20:50 Atorvastatin Calcium 40 mg HS 11/18/24 21:00 12/18/24 20:59 11/19/24 20:50 Clopidogrel Bisulfate 75 mg DAILY 11/18/24 09:00 12/18/24 08:59 11/19/24 08:47 Losartan Potassium 50 mg DAILY 11/18/24 09:00 12/18/24 08:59 11/19/24 08:47 Nitroglycerin 0.4 mg AD 11/17/24 22:00 12/17/24 21:59 11/18/24 21:39 Tamsulosin HCl 0.4 mg DAILY 11/18/24 09:00 12/18/24 08:59 11/19/24 08:46 Ascorbic Acid 1,000 mg DAILY 11/18/24 09:00 12/18/24 08:59 11/19/24 08:47 Home Med DAILY 11/18/24 09:00 12/18/24 08:59 Pantoprazole Sodium 40 mg DAILY 11/18/24 09:00 12/18/24 08:59 11/19/24 08:48 Vitamin B Complex/ Folic Acid 1 cap DAILY 11/18/24 09:00 12/18/24 08:59 11/19/24 08:46 Home Med DAILY 11/18/24 09:00 12/18/24 08:59 Acetaminophen 650 mg Q4H PRN 11/18/24 07:30 12/18/24 07:29 Acetaminophen 650 mg Q6H PRN 11/18/24 07:30 12/18/24 07:29 Ipratropium [place] 0.5 MG [id number] 11/18/24 12:00 12/18/24 11:59 11/19/24 18:34 Ipratropium [place] 0.5 MG Q4H PRN 11/18/24 08:00 12/18/24 07:59 Methylprednisolone Sodium Succinate 40 mg BID 11/18/24 09:00 12/18/24 08:59 11/19/24 20:50 Guaifenesin/ Dextromethorphan 10 ml Q4H PRN 11/18/24 12:00 12/18/24 11:59 11/19/24 08:46 Benzonatate 200 mg Q6H6 PRN 11/18/24 12:30 12/18/24 12:29 11/18/24 12:34 Promethazine HCl 6.25 mg Q4H PRN 11/18/24 19:30 12/18/24 19:29 11/19/24 20:51 Lidocaine HCl/Al Hydroxide/Mg Hydroxide/ Dicyclomine HCl 20ML OR AD Q6H PRN 11/19/24 09:30 12/19/24 09:29 11/19/24 09:50 Benzocaine 1 each Q4H PRN 11/19/24 09:30 12/19/24 09:29 11/19/24 09:50 Hydralazine HCl 25 mg Q6H6 PRN 11/19/24 17:30 12/19/24 17:29 11/19/24 17:37 Ondansetron HCl 4 mg Q6H PRN 11/19/24 17:30 12/19/24 17:29 11/19/24 17:36 Metoprolol Succinate 100 mg DAILY 11/20/24 09:00 12/20/24 08:59 Melatonin 5 mg ONCE 11/19/24 20:30 11/19/24 23:59 11/19/24 20:49 PROBLEM LIST: (1) Leukocytosis ICD Code: D72.829 - Elevated white blood cell count, unspecified (2) Acute febrile illness ICD Code: R50.9 - Fever, unspecified (3) Community acquired pneumonia ICD Code: J18.9 - Pneumonia, unspecified organism (4) COPD exacerbation ICD Code: J44.1 - Chronic obstructive pulmonary disease with (acute) exacerbati on (5) CAD (coronary artery disease) ICD Code: I25.10 - Atherosclerotic heart disease of [place] coronary artery without angina pectoris (6) Atrial fibrillation with slow ventricular response ICD Code: I48.91 - Unspecified atrial fibrillation PLAN: iv antibiotics nebs steroids telemtry consult cardiolgy ROSINA MORA MD Nov 19, 2024 22:31
--- NOTE | 2024-11-19 23:22 | CONS ---
CARDIOLOGY CONSULTATION REFERRING PHYSICIAN: Kenia Nguyen MD REASON FOR REFERRAL: Palpitations. HISTORY OF PRESENT ILLNESS: This is a very pleasant 84-year-old gentleman well known to me. He has had atrial fibrillation for quite some time, generally well controlled. He had developed some shortness of breath and cough. During a coughing spell, he felt some palpitations, became short of breath, presented to the Emergency Room, was found to have a pneumonia and atrial fibrillation. He was placed on appropriate medications and subsequently reverted. Currently, he feels quite well. He has no chest pain, shortness of breath, orthopnea or PND. He has been treated for pneumonia. PHYSICAL EXAMINATION: GENERAL: Currently on exam, he is lying flat and comfortable. He has desire to be discharged. HEENT: Unremarkable. VITAL SIGNS: His blood pressure is currently 159/79. His medications are being changed. NECK: There is no jugular venous distention. LUNGS: Distant. There are no crackles or wheezes. HEART: Currently regular. There is no S3, no S4. Heart sounds are distant. ABDOMEN: Slightly obese. EXTREMITIES: Have minimal edema. There are palpable pulses. LABORATORY DATA: His white count is elevated to 14.3, the H and H is 12.4 and 37. Electrolytes are remarkable for slightly low, but stable sodium 143. Glucose is 135, down from 162. His troponin initially was 60 and currently is elevated . His BNP is 187. Chest x-ray shows a slightly large cardiac silhouette. There are minimal infiltrates. There are minimal findings of heart failure. ASSESSMENT AND PLAN: Likely bronchitis or mild pneumonia. He is currently stable. His beta blockers will be increased. He may be a candidate for other agents, which was restarted as an outpatient; however, for now, I would continue current medication and will increase his metoprolol to 100 mg of succinate on daily doses. I have explained all the issues with him, he understands. He does have a pacemaker, which seems to be operating normally. Thank you for allowing me to participate in management of this gentleman. I explained to the patient options that I would be out of town over the holiday, but available by telephone. TID: [id number] RECEIPT: [id number]
[2024-11-20] VITALS (16 sets, daily range): BP systolic 109–155; BP diastolic 59–73; PULSE 63–74; RESP 18–20; TEMP 97.8–98.4; O2SAT 87–97
[2024-11-20] MEDS: metOPROLol sucCINATE 50 MG TAB.SR.24H PO SCH (08:24)
--- NOTE | 2024-11-20 12:15 | PN ---
[facility] PROGRESS NOTE Date Patient Seen: Nov 20, 2024 Time of Visit: 12:15 Supervising Physician: Kevin López MD Primary Care Physician: [Dr. Gong] Outpatient Specialists: [ ] Inpatient Consults: [BIS] PROBLEM LIST: Community acquired pneumonia, POA Acute COPD exacerbation, POA NSTEMI, likely type II demand ischemia, POA Acute respiratory insufficiency, POA Chronic diastolic heart failure without exacerbation, POA Coronary artery disease, on dual antiplatelet therapy Atrial fibrillation, on Eliquis5 mg b.i.d. Hyponatremia, POA, resolved Benign prostate hyperplasia History of remote neck surgery History of remote back surgery Plan: Continue antibiotics with azithromycin and Rocephin wean steroids to prednisone 20mg po bid x 5 days Follow sputum culture results 6 min walk before DC failed, arrange for home o2 lasix 40mg iv x1 dose now stop IVF Dispo per primary -Arrange outpatient pulmonology referral for sleep study, PFT and follow-up management upon discharge with Dr Leonardo nelson MD INTERVAL HISTORY: Patient is awake alert and oriented x3. Reports cough with congestion. Crackles auscultated on holidays. Patient has been receiving IV fluids may be slightly hypovolemic. Stop IV fluids give one time dose of Lasix 40 mg one. Start Singulair 10 mg q.h.s.. Wean steroids to 20 mg of prednisone b.i.d. x5 more days. Patient has failed 6 minute walk per primary team we will have case management arrange for home O2. We have respiratory status improved in a.m. and home o2 has been arranged we may clear from pulmonary standpoint. Patient has been afebrile and hemodynamically stable white count did increase to 14 today likely reactive from steroid use. Rechecked per influenza and patient tested negative for the 2nd time. He is saturating 96% with 2 L via nasal cannula respiratory rate of 18 unlabored. REVIEW OF SYSTEMS: 12 point ROS reviewed with patient. Pertinent positives mentioned above. Otherwise negative. PHYSICAL EXAM: GENERAL: alert, weak, awake oriented x 3 HEENT: EOMI, Sclera non icteric, moist mucosa NECK: Supple, no JVD, trachea midline LUNGS: Clear breath sounds bilaterally. No wheezes HEART: Regular rate and rhythm. Normal S1 and S2, without murmurs ABD: Abdomen soft, nontender. Bowel sounds present EXT: No clubbing cyanosis or edema NEURO: Alert and oriented to person, follows commands Vital Signs (last 8hr) Date Time Temp Pulse Resp B/P (MAP) Pulse Ox O2 Delivery O2 Flow Rate FiO2 11/20/24 11:28 98.1 64 20 142/68 95 Nasal Cannula 2.0 11/20/24 11:24 63 20 N/Cannula Low lpm 2.0 11/20/24 11:23 63 20 11/20/24 09:45 68 20 21 69 20 28 11/20/24 08:00 98.1 66 18 151/73 97 Nasal Cannula 2.0 11/20/24 07:05 74 20 N/A Room Air 21 11/20/24 07:04 74 20 LABS: Hematology Labs: Test 11/19/24 07:41 Range/Units White Blood Count 14.3 H 4.8-10.8 K/uL Red Blood Count 3.86 L 4.50-6.20 MIL/uL Hemoglobin 12.4 L 14.0-18.0 g/dL Hematocrit 34.7 L 42-54 % Mean Corpuscular Volume 89.9 79-99 fL Mean Corpuscular Hemoglobin 32.1 27.0-33.0 pg Mean Corpuscular Hemoglobin Concent 35.7 32.0-36.0 g/dL Red Cell Distribution Width 13.3 11.0-15.5 % Platelet Count 189 130-400 K/uL Mean Platelet Volume 10.1 7.5-10.5 fL Immature Granulocyte % (Auto) 0.5 0-1 % Neutrophils (%) (Auto) 91.6 H 40.0-77.0 % Lymphocytes (%) (Auto) 2.8 L 21.0-51.0 % Monocytes (%) (Auto) 5.0 3.0-13.0 % Eosinophils (%) (Auto) 0.0 0.0-8.0 % Basophils (%) (Auto) 0.1 0.0-5.0 % Neutrophils # (Auto) 13.1 H 1.8-7.7 K/uL Lymphocytes # (Auto) 0.4 L 1.0-4.8 K/uL Monocytes # (Auto) 0.7 0.1-1.0 K/uL Eosinophils # (Auto) 0.00 0.00-0.70 K/uL Basophils # (Auto) 0.02 0.00-0.20 K/uL Absolute Immature Granulocyte (auto 0.07 0-1 K/uL Nucleated Red Blood Cells 0.0 0.0-0.19 % Chemistry Labs: Test 11/19/24 07:41 Range/Units Sodium Level 134 L 136-145 mmol/L Potassium Level 4.0 3.5-5.1 mmol/L Chloride Level 101 101-111 mmol/L Carbon Dioxide Level 29 21-32 mmol/L Blood Urea Nitrogen 14 7-18 mg/dL Creatinine 0.9 0.5-1.3 mg/dL Glomerular Filtration Rate Calc 85 >90 mL/min Random Glucose 135 H 70-105 mg/dL Total Calcium 8.3 L 8.5-10.1 mg/dL Magnesium Level 1.90 1.80-2.40 mg/dL Troponin I High Sensitivity 292 *H 4-75 ng/L B-Type Natriuretic Peptide 186 H 0-100 pg/mL DIAGNOSTICS / RADIOLOGY RESULTS: [ ] PLAN NEURO: Minimize central acting medications as possible. Maintain fall precautions, adequate lighting during the day PULMONARY: Supplemental 02 as needed. Maintain aspiration precautions at all times CARDIOVASCULAR: Follow hemodynamics. Vital signs per facility protocol GI & NUTRITION: Continue with nutritional support. Continue stool softeners and laxatives as needed. KIDNEYS & ELECTROLYTES: Strict monitoring of intake, output and overall fluid balance. Avoid nephrotoxic medications to the extent possible. Medications to be dosed according to renal function. Monitor electrolytes and replace as needed ENDOCRINE: Maintain blood glucose between 100-180 at all times. Hypoglycemia protocol in place INFECTIOUS DISEASE: Trend temperature, WBC and procalcitonin level Follow cultures, deescalate antibiotics as soon as possible. Panculture if new onset fever ONCOLOGY/HEMATOLOGY/COAGULATION: Monitor for s/s of bleeding Monitor hemoglobin, coagulation studies as needed SKIN: Pressure ulcer prevention per facility protocol Specialty mattress ORTHO/REHAB: Continue PT/OT Prophylaxis: Continue GI and DVT prophylaxis Code Status: Full Resuscitation Disposition: TBD Other: Total patient care time exceeds 35 minutes excluding all procedures. JAZMYNE MALONEY Nov 20, 2024 12:15
[2024-11-20 13:04] LABS: INFLUENZA TYPE A Negative For Type A (NEGATIVE); INFLUENZA TYPE B Negative For Type B (NEGATIVE)
[2024-11-20] MEDS: furoSEMIDE 40MG VIAL IV ONE (14:13)
--- NOTE | 2024-11-20 16:22 | NUR ---
Discharge Planning: Referral for home 02 sent to [facility]. Pending insurance authorization and delivery.
[2024-11-20 18:12] LABS: CREATINE KINASE, TOTAL 78 U/L (21-232)
[2024-11-20] MEDS: CEFTRIAXONE 2GM VIAL IVPB SCH (20:58)
--- NOTE | 2024-11-20 21:19 | PN ---
PROGRESS NOTE PROGRESS NOTE DATE OF PROGRESS NOTE: 11/20/24 SUBJECTIVE: The patient is doing better VITAL SIGNS Vital Signs Date Time Temp Pulse Resp B/P (MAP) Pulse Ox O2 Delivery O2 Flow Rate FiO2 11/20/24 20:00 98.2 65 18 150/59 96 Nasal Cannula 2.0 11/20/24 09:45 21 28 PHYSICAL EXAM: Physical Exam Physical Exam Physical Exam Dictation Vital Signs reviewed General Appearance: Alert, oriented x 3, no acute distress, well developed, nourished. Head and Face: non-traumatic. Eyes: PERRL, pink conjunctivas, eyelid no trauma, anterior chamber with arcus senilis. Ears: Pinnas intact and no signs of trauma or erythema ear canals clear and no discharge TM no erythema Nose: No discharge, no bleeding. Oropharynx: Mouth normal, tongue pink, pharynx clear,no erythema, tonsils no exudates, no abscesses noted, mucous membrane moist Neck: Supple, non-tender, no thyromegaly, no masses, no JVD, no bruits Breast:Deferred Chest:No tenderness, no crepitus, no paradoxical movement, no retractions Lungs:Clear, well-ventilated, symmetric, no rales, no wheezing, no rhonchi, no stridor, good breath sounds bilaterally Heart: Regular rate, regular rhythm, no murmur, no gallops Vascular: no peripheral edema, Abdomen: Soft, positive bowel sounds, nondistended, no guarding, nontender, no rebound, no masses no hepatomegaly, no splenomegaly, no Muro's sign, no hernias. Rectal: Deferred Genital: Deferred Neurological: Normal speech, motor function intact, sensory function intact Musculoskeletal: Neck nontender, full range of motion, back nontender, full range of motion, Extremities: nontender, full range of motion Skin: Color pink, dry, no turgor, no rash, no lacerations, no abrasions, no contusions. Lymphatic: Deferred LABORATORY: Laboratory Result(s) Test 11/20/24 12:35 11/20/24 12:47 11/20/24 17:50 Influenza Type A Antigen Negative For Type A Influenza Type B Antigen Negative For Type B Total Creatine Kinase 75 U/L (21-232) 78 U/L (21-232) Troponin I High Sensitivity 89.6 ng/L (4-75) 85 ng/L (4-75) INPATIENT MEDS: Current Medications Medications Dose Ordered Sig/Kandice Start Time Stop Time Status Last Admin Sodium Chloride 1,000 ml @ 75 mls/hr [id number] 11/17/24 17:30 12/17/24 17:29 11/19/24 08:48 Azithromycin 250 ml @ 250 mls/hr Q24H 11/17/24 19:00 11/27/24 18:59 11/20/24 18:30 Apixaban 5 mg BID 11/17/24 22:30 12/17/24 22:29 11/20/24 20:57 Atorvastatin Calcium 40 mg HS 11/18/24 21:00 12/18/24 20:59 11/20/24 20:57 Clopidogrel Bisulfate 75 mg DAILY 11/18/24 09:00 12/18/24 08:59 11/20/24 08:21 Losartan Potassium 50 mg DAILY 11/18/24 09:00 12/18/24 08:59 11/20/24 08:24 Nitroglycerin 0.4 mg AD 11/17/24 22:00 12/17/24 21:59 11/18/24 21:39 Tamsulosin HCl 0.4 mg DAILY 11/18/24 09:00 12/18/24 08:59 11/20/24 08:22 Ascorbic Acid 1,000 mg DAILY 11/18/24 09:00 12/18/24 08:59 11/20/24 08:24 Home Med DAILY 11/18/24 09:00 12/18/24 08:59 Pantoprazole Sodium 40 mg DAILY 11/18/24 09:00 12/18/24 08:59 11/20/24 08:22 Vitamin B Complex/ Folic Acid 1 cap DAILY 11/18/24 09:00 12/18/24 08:59 11/20/24 08:22 Home Med DAILY 11/18/24 09:00 12/18/24 08:59 Acetaminophen 650 mg Q4H PRN 11/18/24 07:30 12/18/24 07:29 Acetaminophen 650 mg Q6H PRN 11/18/24 07:30 12/18/24 07:29 Ipratropium Fernley 0.5 MG [id number] 11/18/24 12:00 12/18/24 11:59 11/20/24 18:32 Ipratropium [place] 0.5 MG Q4H PRN 11/18/24 08:00 12/18/24 07:59 Methylprednisolone Sodium Succinate 40 mg BID 11/18/24 09:00 12/18/24 08:59 11/20/24 20:58 Guaifenesin/ Dextromethorphan 10 ml Q4H PRN 11/18/24 12:00 12/18/24 11:59 11/19/24 08:46 Benzonatate 200 mg Q6H6 PRN 11/18/24 12:30 12/18/24 12:29 11/18/24 12:34 Promethazine HCl 6.25 mg Q4H PRN 11/18/24 19:30 12/18/24 19:29 11/19/24 20:51 Lidocaine HCl/Al Hydroxide/Mg Hydroxide/ Dicyclomine HCl 20ML OR AD Q6H PRN 11/19/24 09:30 12/19/24 09:29 11/19/24 09:50 Benzocaine 1 each Q4H PRN 11/19/24 09:30 12/19/24 09:29 11/19/24 09:50 Hydralazine HCl 25 mg Q6H6 PRN 11/19/24 17:30 12/19/24 17:29 11/19/24 17:37 Ondansetron HCl 4 mg Q6H PRN 11/19/24 17:30 12/19/24 17:29 11/19/24 17:36 Metoprolol Succinate 100 mg DAILY 11/20/24 09:00 12/20/24 08:59 11/20/24 08:24 Ceftriaxone Sodium 2 gm Q24H 11/20/24 20:00 11/30/24 19:59 11/20/24 20:58 PROBLEM LIST: (1) Leukocytosis ICD Code: D72.829 - Elevated white blood cell count, unspecified (2) Acute febrile illness ICD Code: R50.9 - Fever, unspecified (3) Community acquired pneumonia ICD Code: J18.9 - Pneumonia, unspecified organism (4) COPD exacerbation ICD Code: J44.1 - Chronic obstructive pulmonary disease with (acute) exacerbation (5) CAD (coronary artery disease) ICD Code: I25.10 - Atherosclerotic heart disease of [place] coronary artery without angina pectoris (6) Atrial fibrillation with slow ventricular response ICD Code: I48.91 - Unspecified atrial fibrillation PLAN: iv antibiotics nebs steroids telemtry consult cardiolgy ROSINA MORA MD Nov 20, 2024 21:19
[2024-11-20] MEDS: monteLUKAST sodIUM 10 MG TAB PO SCH (22:00)
[2024-11-21] VITALS (12 sets, daily range): BP systolic 130–157; BP diastolic 69–83; PULSE 63–77; RESP 18–24; TEMP 98–98.9; O2SAT 93–96
[2024-11-21 06:17] LABS: BASOPHILS # (AUTO) 0.03 K/uL (0.00-0.20); BASOPHILS % (AUTO) 0.4 % (0.0-5.0); HEMATOCRIT 35.7 % (42-54); IMMATURE GRANULOCYTE ABSOLUTE 0.15 K/uL (0-1); LYMPHOCYTES # (AUTO) 0.2 K/uL (1.0-4.8); LYMPHOCYTES % (AUTO) 2.7 % (21.0-51.0); MEAN CORPUSCULAR HGB CONC 34.5 g/dL (32.0-36.0); MONOCYTES # (AUTO) 0.5 K/uL (0.1-1.0); MONOCYTES % (AUTO) 5.7 % (3.0-13.0); NEUTROPHILS # (AUTO) 7.5 K/uL (1.8-7.7); NEUTROPHILS % (AUTO) 89.4 % (40.0-77.0); PLATELET COUNT (AUTO) 169 K/uL (130-400); RED BLOOD CELL COUNT(AUTO) 3.84 MIL/uL (4.50-6.20); RED CELL DISTRIBUTION WIDTH 13.6 % (11.0-15.5); WHITE BLOOD COUNT (AUTO) 8.4 K/uL (4.8-10.8)
[2024-11-21 06:37] LABS: ALBUMIN 2.4 g/dL (3.5-5.0); BILIRUBIN,TOTAL 0.4 mg/dL (0.2-1.0); CREATININE 0.8 mg/dL (0.5-1.3); POTASSIUM 3.7 mmol/L (3.5-5.1); TOTAL PROTEIN, SERUM 5.7 g/dL (6.0-8.3)
--- NOTE | 2024-11-21 08:52 | HMCIMG ---
PORTABLE CHEST RADIOGRAPH INDICATION: hypoxic resp failure COMPARISON: 11/19/2024 FINDINGS: conveyor monitor leads overlie the field of view. Left sided dual chamber pacer and continuous leads remain in customary position. Heart size is normal. Mild calcific plaque is present along the aortic arch toney. The pulmonary vascularity and roxy appear normal. Linear right infrahilar greater than left infrahilar opacities, some of which may represent crowding of normal pulmonary vascularity, but no evidence for consolidation. Miniscule calcified granuloma left lung apex. No significant pleural effusion noted. No pneumothorax detected. IMPRESSION: Minimal left greater than right infrahilar scarring and/or atelectasis.
[2024-11-21] MEDS: predniSONE 20 MG TABLET PO SCH (09:49)
--- NOTE | 2024-11-21 12:51 | PN ---
[facility] PROGRESS NOTE Date Patient Seen: Nov 21, 2024 Time of Visit: 12:51 Supervising Physician: Stuart Llanos MD Primary Care Physician: [Dr. Gong] Outpatient Specialists: [ ] Inpatient Consults: [BIS] PROBLEM LIST: Community acquired pneumonia, POA Acute COPD exacerbation, POA NSTEMI, likely type II demand ischemia, POA Acute respiratory insufficiency, POA Chronic diastolic heart failure without exacerbation, POA Coronary artery disease, on dual antiplatelet therapy Atrial fibrillation, on Eliquis5 mg b.i.d. Hyponatremia, POA, resolved Benign prostate hyperplasia History of remote neck surgery History of remote back surgery Plan: Continue antibiotics with azithromycin and Rocephin wean steroids to prednisone 20mg po bid x 5 days Follow sputum culture results 6 min walk before DC failed, arrange for home o2 lasix 40mg iv x1 dose now stop IVF Dispo per primary Atrovent and Mucomyst nebs IS and acapella with Txs, CPT -Arrange outpatient pulmonology referral for sleep study, PFT and follow-up management upon discharge with Dr Leonardo nelson MD INTERVAL HISTORY: Patient is awake alert and oriented x3. Reports cough with congestion. Crackles auscultated on holidays. Patient has been receiving IV fluids may be slightly hypovolemic. Stop IV fluids give one time dose of Lasix 40 mg one. Start Singulair 10 mg q.h.s.. Wean steroids to 20 mg of prednisone b.i.d. x5 more days. Patient has failed 6 minute walk per primary team we will have case management arrange for home O2. We have respiratory status improved in a.m. and home o2 has been arranged we may clear from pulmonary standpoint. Patient has been afebrile and hemodynamically stable white count did increase to 14 today likely reactive from steroid use. Rechecked per influenza and patient tested negative for the 2nd time. He is saturating 96% with 2 L via nasal cannula respiratory rate of 18 unlabored. 11/21/23- patient is awake alert and oriented x3 hemodynamically stable and afebrile. He reports feeling about the same from yesterday. He continues with O2 at 2 L via nasal cannula saturating 94%. Urine output of 1.9 L with a balance of-875 mL. WBCs normalized today H&H similar to yesterday platelet count [id number] otherwise unremarkable CBC. Chemistries sodium 135 creatinine 0.8 GFR of 88 doing well. Glucose 136 mg/dL sensitive troponin has trended down to 85 consistent with a NSTEMI type 2 from demand ischemia. Albumin 2.4. On chest x-ray right infrahilar scarring vs atelectasis. Patient to continue with the IS increased to Q 1 hour. Patient continues with the Acapella and duo nebs we will add Mucomyst per patient request due to unable to expectorate. He is pending home O2 arrangement for now. REVIEW OF SYSTEMS: 12 point ROS reviewed with patient. Pertinent positives mentioned above. Otherwise negative. PHYSICAL EXAM: GENERAL: alert, weak, awake oriented x 3 HEENT: EOMI, Sclera non icteric, moist mucosa NECK: Supple, no JVD, trachea midline LUNGS: Clear breath sounds bilaterally. No wheezes HEART: Regular rate and rhythm. Normal S1 and S2, without murmurs ABD: Abdomen soft, nontender. Bowel sounds present EXT: No clubbing cyanosis or edema NEURO: Alert and oriented to person, follows commands Vital Signs (last 8hr) Date Time Temp Pulse Resp B/P (MAP) Pulse Ox O2 Delivery O2 Flow Rate FiO2 11/21/24 11:25 65 20 N/Cannula Low lpm 2.0 11/21/24 11:25 65 20 11/21/24 08:00 94 Nasal Cannula* 2 28 11/21/24 07:01 63 20 N/Cannula Low lpm 2.0 11/21/24 07:01 63 20 LABS: Hematology Labs: Test 11/21/24 05:48 Range/Units White Blood Count 8.4 4.8-10.8 K/uL Red Blood Count 3.84 L 4.50-6.20 MIL/uL Hemoglobin 12.3 L 14.0-18.0 g/dL Hematocrit 35.7 L 42-54 % Mean Corpuscular Volume 93.0 79-99 fL Mean Corpuscular Hemoglobin 32.0 27.0-33.0 pg Mean Corpuscular Hemoglobin Concent 34.5 32.0-36.0 g/dL Red Cell Distribution Width 13.6 11.0-15.5 % Platelet Count 169 130-400 K/uL Mean Platelet Volume 10.1 7.5-10.5 fL Immature Granulocyte % (Auto) 1.8 H 0-1 % Neutrophils (%) (Auto) 89.4 H 40.0-77.0 % Lymphocytes (%) (Auto) 2.7 L 21.0-51.0 % Monocytes (%) (Auto) 5.7 3.0-13.0 % Eosinophils (%) (Auto) 0.0 0.0-8.0 % Basophils (%) (Auto) 0.4 0.0-5.0 % Neutrophils # (Auto) 7.5 1.8-7.7 K/uL Lymphocytes # (Auto) 0.2 L 1.0-4.8 K/uL Monocytes # (Auto) 0.5 0.1-1.0 K/uL Eosinophils # (Auto) 0.00 0.00-0.70 K/uL Basophils # (Auto) 0.03 0.00-0.20 K/uL Absolute Immature Granulocyte (auto 0.15 0-1 K/uL Nucleated Red Blood Cells 0.0 0.0-0.19 % Chemistry Labs: Test 11/21/24 05:48 11/20/24 17:50 Range/Units Sodium Level 135 L 136-145 mmol/L Potassium Level 3.7 3.5-5.1 mmol/L Chloride Level 101 101-111 mmol/L Carbon Dioxide Level 29 21-32 mmol/L Blood Urea Nitrogen 15 7-18 mg/dL Creatinine 0.8 0.5-1.3 mg/dL Glomerular Filtration Rate Calc 88 >90 mL/min Random Glucose 136 H 70-105 mg/dL Total Calcium 8.4 L 8.5-10.1 mg/dL Total Bilirubin 0.4 0.2-1.0 mg/dL Aspartate Amino Transf (AST/SGOT) 26 10-37 U/L Alanine Aminotransferase (ALT/SGPT) 22 12-78 U/L Alkaline Phosphatase 126 50-136 U/L Total Protein 5.7 L 6.0-8.3 g/dL Albumin 2.4 L 3.5-5.0 g/dL Total Creatine Kinase 78 21-232 U/L Troponin I High Sensitivity 85 *H 4-75 ng/L DIAGNOSTICS / RADIOLOGY RESULTS: IMAGING REPORT Signed PATIENT: ATIYA KEITH V MR#: [id number] : 1940 SEX: M AGE: 84 LOCATION: 3AH ORDER 2300 STATUS: ADM IN REPORT#: [id number] SERVICE 0600 REASON: hypoxic resp failure ORDERING PHYSICIAN: JAZMYNE MALONEY PROCEDURE: CXR1VW - CHEST 1VW PORTABLE CHEST RADIOGRAPH INDICATION: hypoxic resp failure COMPARISON: 11/19/2024 FINDINGS: internal medicine physician leads overlie the field of view. Left sided dual chamber pacer and continuous leads remain in customary position. Heart size is normal. Mild calcific plaque is present along the aortic arch toney. The pulmonary vascularity and roxy appear normal. Linear right infrahilar greater than left infrahilar opacities, some of which may represent crowding of normal pulmonary vascularity, but no evidence for consolidation. Miniscule calcified granuloma left lung apex. No significant pleural effusion noted. No pneumothorax detected. IMPRESSION: Minimal left greater than right infrahilar scarring and/or atelectasis. DICTATED BY: TAYLA WATKINS MD DATE: 11/21/24848 ELECTRONICALLY SIGNED BY: TAYLA WATKINS MD DATE: 11/21/24851 PLAN NEURO: Minimize central acting medications as possible. Maintain fall precautions, adequate lighting during the day PULMONARY: Supplemental 02 as needed. Maintain aspiration precautions at all times CARDIOVASCULAR: Follow hemodynamics. Vital signs per facility protocol GI & NUTRITION: Continue with nutritional support. Continue stool softeners and laxatives as needed. KIDNEYS & ELECTROLYTES: Strict monitoring of intake, output and overall fluid balance. Avoid nephrotoxic medications to the extent possible. Medications to be dosed according to renal function. Monitor electrolytes and replace as needed ENDOCRINE: Maintain blood glucose between 100-180 at all times. Hypoglycemia protocol in place INFECTIOUS DISEASE: Trend temperature, WBC and procalcitonin level Follow cultures, deescalate antibiotics as soon as possible. Panculture if new onset fever ONCOLOGY/HEMATOLOGY/COAGULATION: Monitor for s/s of bleeding Monitor hemoglobin, coagulation studies as needed SKIN: Pressure ulcer prevention per facility protocol Specialty mattress ORTHO/REHAB: Continue PT/OT Prophylaxis: Continue GI and DVT prophylaxis Code Status: Full Resuscitation Disposition: TBD Other: Total patient care time exceeds 35 minutes excluding all procedures. JAZMYNE MALONEY Nov 21, 2024 12:51
[2024-11-21] MEDS: furoSEMIDE 20MG VIAL IV ONE (14:44)
[2024-11-21] MEDS ORDERED: BisaCODYL 10 MG SUPP.RECT RC PRN (15:30)
[2024-11-21] MEDS: acetylCYSTeine 20% 200MG/ML 4ML VIAL IH SCH (19:30)
[2024-11-21] MEDS ORDERED: MELATONIN 5 MG TABLET PO PRN (21:00)
[2024-11-21] MEDS: MELATONIN 5 MG TABLET PO SCH (21:20)
--- NOTE | 2024-11-21 22:06 | PN ---
PROGRESS NOTE PROGRESS NOTE DATE OF PROGRESS NOTE: 11/21/24 SUBJECTIVE: Doing better VITAL SIGNS Vital Signs Date Time Temp Pulse Resp B/P (MAP) Pulse Ox O2 Delivery O2 Flow Rate FiO2 11/21/24 19:33 76 20 N/Cannula Low lpm 2.0 11/21/24 16:00 98.4 153/81 96 11/21/24 08:00 28 PHYSICAL EXAM: Physical Exam Physical Exam Physical Exam Dictation Vital Signs reviewed General Appearance: Alert, oriented x 3, no acute distress, well developed, nourished. Head and Face: non-traumatic. Eyes: PERRL, pink conjunctivas, eyelid no trauma, anterior chamber with arcus senilis. Ears: Pinnas intact and no signs of trauma or erythema ear canals clear and no discharge TM no erythema Nose: No discharge, no bleeding. Oropharynx: Mouth normal, tongue pink, pharynx clear,no erythema, tonsils no exudates, no abscesses noted, mucous membrane moist Neck: Supple, non-tender, no thyromegaly, no masses, no JVD, no bruits Breast:Deferred Chest:No tenderness, no crepitus, no paradoxical movement, no retractions Lungs:Clear, well-ventilated, symmetric, no rales, no wheezing, no rhonchi, no stridor, good breath sounds bilaterally Heart: Regular rate, regular rhythm, no murmur, no gallops Vascular: no peripheral edema, Abdomen: Soft, positive bowel sounds, nondistended, no guarding, nontender, no rebound, no masses no hepatomegaly, no splenomegaly, no Muro's sign, no hernias. Rectal: Deferred Genital: Deferred Neurological: Normal speech, motor function intact, sensory function intact Musculoskeletal: Neck nontender, full range of motion, back nontender, full range of motion, Extremities: nontender, full range of motion Skin: Color pink, dry, no turgor, no rash, no lacerations, no abrasions, no contusions. Lymphatic: Deferred LABORATORY: Laboratory Result(s) Test 11/21/24 05:48 White Blood Count 8.4 K/uL (4.8-10.8) Red Blood Count 3.84 MIL/uL (4.50-6.20) Hemoglobin 12.3 g/dL (14.0-18.0) Hematocrit 35.7 % (42-54) Mean Corpuscular Volume 93.0 fL (79-99) Mean Corpuscular Hemoglobin 32.0 pg (27.0-33.0) Mean Corpuscular Hemoglobin Concent 34.5 g/dL (32.0-36.0) Red Cell Distribution Width 13.6 % (11.0-15.5) Platelet Count 169 K/uL (130-400) Mean Platelet Volume 10.1 fL (7.5-10.5) Immature Granulocyte % (Auto) 1.8 % (0-1) Neutrophils (%) (Auto) 89.4 % (40.0-77.0) Lymphocytes (%) (Auto) 2.7 % (21.0-51.0) Monocytes (%) (Auto) 5.7 % (3.0-13.0) Eosinophils (%) (Auto) 0.0 % (0.0-8.0) Basophils (%) (Auto) 0.4 % (0.0-5.0) Neutrophils # (Auto) 7.5 K/uL (1.8-7.7) Lymphocytes # (Auto) 0.2 K/uL (1.0-4.8) Monocytes # (Auto) 0.5 K/uL (0.1-1.0) Eosinophils # (Auto) 0.00 K/uL (0.00-0.70) Basophils # (Auto) 0.03 K/uL (0.00-0.20) Absolute Immature Granulocyte (auto 0.15 K/uL (0-1) Nucleated Red Blood Cells 0.0 % (0.0-0.19) Sodium Level 135 mmol/L (136-145) Potassium Level 3.7 mmol/L (3.5-5.1) Chloride Level 101 mmol/L (101-111) Carbon Dioxide Level 29 mmol/L (21-32) Blood Urea Nitrogen 15 mg/dL (7-18) Creatinine 0.8 mg/dL (0.5-1.3) Glomerular Filtration Rate Calc 88 mL/min (>90) Random Glucose 136 mg/dL (70-105) Total Calcium 8.4 mg/dL (8.5-10.1) Total Bilirubin 0.4 mg/dL (0.2-1.0) Aspartate Amino Transf (AST/SGOT) 26 U/L (10-37) Alanine Aminotransferase (ALT/SGPT) 22 U/L (12-78) Alkaline Phosphatase 126 U/L (50-136) Total Protein 5.7 g/dL (6.0-8.3) Albumin 2.4 g/dL (3.5-5.0) INPATIENT MEDS: Current Medications Medications Dose Ordered Sig/Kandice Start Time Stop Time Status Last Admin Azithromycin 250 ml @ 250 mls/hr Q24H 11/17/24 19:00 11/27/24 18:59 11/21/24 17:25 Apixaban 5 mg BID 11/17/24 22:30 12/17/24 22:29 11/21/24 20:10 Atorvastatin Calcium 40 mg HS 11/18/24 21:00 12/18/24 20:59 11/21/24 20:10 Clopidogrel Bisulfate 75 mg DAILY 11/18/24 09:00 12/18/24 08:59 11/21/24 09:50 Losartan Potassium 50 mg DAILY 11/18/24 09:00 12/18/24 08:59 11/21/24 09:49 Nitroglycerin 0.4 mg AD 11/17/24 22:00 12/17/24 21:59 11/18/24 21:39 Tamsulosin HCl 0.4 mg DAILY 11/18/24 09:00 12/18/24 08:59 11/21/24 09:50 Ascorbic Acid 1,000 mg DAILY 11/18/24 09:00 12/18/24 08:59 11/21/24 09:49 Home Med DAILY 11/18/24 09:00 12/18/24 08:59 Pantoprazole Sodium 40 mg DAILY 11/18/24 09:00 12/18/24 08:59 11/21/24 09:49 Vitamin B Complex/ Folic Acid 1 cap DAILY 11/18/24 09:00 12/18/24 08:59 11/21/24 09:49 Home Med DAILY 11/18/24 09:00 12/18/24 08:59 Acetaminophen 650 mg Q4H PRN 11/18/24 07:30 12/18/24 07:29 Acetaminophen 650 mg Q6H PRN 11/18/24 07:30 12/18/24 07:29 Ipratropium [place] 0.5 MG [id number] 11/18/24 12:00 12/18/24 11:59 11/21/24 19:30 Ipratropium [place] 0.5 MG Q4H PRN 11/18/24 08:00 12/18/24 07:59 Guaifenesin/ Dextromethorphan 10 ml Q4H PRN 11/18/24 12:00 12/18/24 11:59 11/19/24 08:46 Benzonatate 200 mg Q6H6 PRN 11/18/24 12:30 12/18/24 12:29 11/18/24 12:34 Promethazine HCl 6.25 mg Q4H PRN 11/18/24 19:30 12/18/24 19:29 11/19/24 20:51 Lidocaine HCl/Al Hydroxide/Mg Hydroxide/ Dicyclomine HCl 20ML OR AD Q6H PRN 11/19/24 09:30 12/19/24 09:29 11/19/24 09:50 Benzocaine 1 each Q4H PRN 11/19/24 09:30 12/19/24 09:29 11/19/24 09:50 Hydralazine HCl 25 mg Q6H6 PRN 11/19/24 17:30 12/19/24 17:29 11/19/24 17:37 Ondansetron HCl 4 mg Q6H PRN 11/19/24 17:30 12/19/24 17:29 11/19/24 17:36 Metoprolol Succinate 100 mg DAILY 11/20/24 09:00 12/20/24 08:59 11/21/24 09:49 Ceftriaxone Sodium 2 gm Q24H 11/20/24 20:00 11/30/24 19:59 11/21/24 20:11 Prednisone 20 mg BID 11/21/24 09:00 11/26/24 08:59 11/21/24 20:10 Montelukast Sodium 10 mg HS 11/20/24 22:00 12/20/24 21:59 11/21/24 20:10 Acetylcysteine 400mg = 2ml [id number] 11/21/24 14:00 12/21/24 13:59 11/21/24 19:30 Bisacodyl 10 mg DAILY PRN 11/21/24 15:30 12/21/24 15:29 Polyethylene Glycol 17 gm DAILY 11/22/24 09:00 12/22/24 08:59 Melatonin 10 mg HS 11/21/24 21:00 12/21/24 20:59 11/21/24 21:20 PROBLEM LIST: (1) Leukocytosis ICD Code: D72.829 - Elevated white blood cell count, unspecified (2) Acute febrile illness ICD Code: R50.9 - Fever, unspecified (3) Community acquired pneumonia ICD Code: J18.9 - Pneumonia, unspecified organism (4) COPD exacerbation ICD Code: J44.1 - Chronic obstructive pulmonary disease with (acute) exacerbation (5) CAD (coronary artery disease) ICD Code: I25.10 - Atherosclerotic heart disease of [place] coronary artery without angina pectoris (6) Atrial fibrillation with slow ventricular response ICD Code: I48.91 - Unspecified atrial fibrillation PLAN: iv antibiotics nebs steroids telemtry consult cardiolgy ROSINA MORA MD Nov 21, 2024 22:06
[2024-11-22] VITALS (8 sets, daily range): BP systolic 140–151; BP diastolic 58–76; PULSE 45–90; RESP 16–24; TEMP 97.5–98.4; O2SAT 96–98
[2024-11-22 04:31] LABS: BASOPHILS # (AUTO) 0.04 K/uL (0.00-0.20); BASOPHILS % (AUTO) 0.4 % (0.0-5.0); EOSINOPHILS # (AUTO) 0.01 K/uL (0.00-0.70); EOSINOPHILS % (AUTO) 0.1 % (0.0-8.0); HEMATOCRIT 36.9 % (42-54); IMMATURE GRANULOCYTE ABSOLUTE 0.36 K/uL (0-1); LYMPHOCYTES # (AUTO) 0.7 K/uL (1.0-4.8); LYMPHOCYTES % (AUTO) 6.9 % (21.0-51.0); MEAN CORPUSCULAR HEMOGLOBIN 31.8 pg (27.0-33.0); MEAN CORPUSCULAR HGB CONC 34.1 g/dL (32.0-36.0); MEAN CORPUSCULAR VOLUME 93.2 fL (79-99); MONOCYTES # (AUTO) 0.8 K/uL (0.1-1.0); MONOCYTES % (AUTO) 8.9 % (3.0-13.0); NEUTROPHILS # (AUTO) 7.6 K/uL (1.8-7.7); NEUTROPHILS % (AUTO) 79.9 % (40.0-77.0); PLATELET COUNT (AUTO) 169 K/uL (130-400); RED BLOOD CELL COUNT(AUTO) 3.96 MIL/uL (4.50-6.20); RED CELL DISTRIBUTION WIDTH 13.3 % (11.0-15.5); WHITE BLOOD COUNT (AUTO) 9.5 K/uL (4.8-10.8)
[2024-11-22 04:43] LABS: POTASSIUM 3.7 mmol/L (3.5-5.1)
[2024-11-22 05:19] LABS: B-TYPE NATRIURETIC PEPTIDE 130 pg/mL (0-100)
[2024-11-22] MEDS ORDERED: PoTASSium chl 10% ELIXIR 20MEQ 20 MEQ/15 ML UDCUP PO PRN (07:00)
[2024-11-22] MEDS ORDERED: PoTASSium chloRIDE 20MEQ/100ML 100 ML IV PRN (07:00)
[2024-11-22] MEDS: PoTASSium chloRIDE 20MEQ ER 20 MEQ ERTAB PO PRN (07:17)
--- NOTE | 2024-11-22 09:11 | NUR ---
PER PULMONARY GROUP, OKAY TO DISCHARGE HOME.
[2024-11-22] MEDS: polyETHYLene GLYCol 3350 17 GM POWD.PACK PO SCH (09:30)
[2024-11-22] MEDS: acetylCYSTeine 20% 200MG/ML 4ML VIAL ONE (11:03)
[2024-11-22] MEDS: acetylCYSTeine 20% 200MG/ML 4ML VIAL IH SCH (11:04)
--- NOTE | 2024-11-22 13:08 | NUR ---
DISCHARGE. PERIPHERAL IV REMOVED. PATIENT AND FAMILY PROVIDED EDUCATION PACKET AND DISCHARGE MEDICATION LIST. PATIENT AND FAMILY AWARE OF FOLLOW UP APPOINTMENT RECOMMENDATION WITH PCP IN 2-3 DAYS. ALL QUESTIONS ANSWERED.
--- NOTE | 2024-11-22 20:14 | PN ---
[facility] PROGRESS NOTE Date Patient Seen: Nov 22, 2024 Time of Visit: 20:07 Supervising Physician: Dr. Stuart Llanos Primary Care Physician: [Dr. Gong] Outpatient Specialists: [ ] Inpatient Consults: [BIS] PROBLEM LIST: Community acquired pneumonia, POA Acute COPD exacerbation, POA NSTEMI, likely type II demand ischemia, POA Acute respiratory insufficiency, POA Chronic diastolic heart failure without exacerbation, POA Coronary artery disease, on dual antiplatelet therapy Atrial fibrillation, on Eliquis5 mg b.i.d. Hyponatremia, POA, resolved Benign prostate hyperplasia History of remote neck surgery History of remote back surgery Plan: Continue antibiotics with azithromycin and Rocephin wean steroids to prednisone 20mg po bid x 5 days Follow sputum culture results 6 [address] walk before DC failed, arrange for home o2 lasix 40mg iv x1 dose now stop IVF Dispo per primary Atrovent and Mucomyst nebs IS and acapella with Txs, CPT -Arrange outpatient pulmonology referral for sleep study, PFT and follow-up management upon discharge with Dr Leonardo nelson MD INTERVAL HISTORY: Patient was evaluated at bedside today, currently on 2 L nasal cannula, patient denies any new complaints, no nausea or vomiting. Patient was breathing well with saturations above 98% on 2 L. patient is currently pending home O2 to be delivered, per case management likely to be today. Patient remains on 20 mg p.o. b.i.d. oral steroids, recommending tapered steroids and oral antibiotic therapy upon discharge. Patient was cleared for discharge once home O2 is delivered, dispo per primary. REVIEW OF SYSTEMS: 12 point ROS reviewed with patient. Pertinent positives mentioned above. Otherwise negative. PHYSICAL EXAM: GENERAL: alert, weak, awake oriented x 3 HEENT: EOMI, Sclera non icteric, moist mucosa NECK: Supple, no JVD, trachea midline LUNGS: Clear breath sounds bilaterally. No wheezes HEART: Regular rate and rhythm. Normal S1 and S2, without murmurs ABD: Abdomen soft, nontender. Bowel sounds present EXT: No clubbing cyanosis or edema NEURO: Alert and oriented to person, follows commands LABS: Hematology Labs: Test 11/22/24 04:13 Range/Units White Blood Count 9.5 4.8-10.8 K/uL Red Blood Count 3.96 L 4.50-6.20 MIL/uL Hemoglobin 12.6 L 14.0-18.0 g/dL Hematocrit 36.9 L 42-54 % Mean Corpuscular Volume 93.2 79-99 fL Mean Corpuscular Hemoglobin 31.8 27.0-33.0 pg Mean Corpuscular Hemoglobin Concent 34.1 32.0-36.0 g/dL Red Cell Distribution Width 13.3 11.0-15.5 % Platelet Count 169 130-400 K/uL Mean Platelet Volume 10.0 7.5-10.5 fL Immature Granulocyte % (Auto) 3.8 H 0-1 % Neutrophils (%) (Auto) 79.9 H 40.0-77.0 % Lymphocytes (%) (Auto) 6.9 L 21.0-51.0 % Monocytes (%) (Auto) 8.9 3.0-13.0 % Eosinophils (%) (Auto) 0.1 0.0-8.0 % Basophils (%) (Auto) 0.4 0.0-5.0 % Neutrophils # (Auto) 7.6 1.8-7.7 K/uL Lymphocytes # (Auto) 0.7 L 1.0-4.8 K/uL Monocytes # (Auto) 0.8 0.1-1.0 K/uL Eosinophils # (Auto) 0.01 0.00-0.70 K/uL Basophils # (Auto) 0.04 0.00-0.20 K/uL Absolute Immature Granulocyte (auto 0.36 0-1 K/uL Nucleated Red Blood Cells 0.0 0.0-0.19 % Chemistry Labs: Test 11/22/24 04:13 11/21/24 05:48 Range/Units Sodium Level 137 136-145 mmol/L Potassium Level 3.7 3.5-5.1 mmol/L Chloride Level 101 101-111 mmol/L Carbon Dioxide Level 30 21-32 mmol/L Blood Urea Nitrogen 14 7-18 mg/dL Creatinine 1.0 0.5-1.3 mg/dL Glomerular Filtration Rate Calc 75 >90 mL/min Random Glucose 126 H 70-105 mg/dL Total Calcium 8.4 L 8.5-10.1 mg/dL B-Type Natriuretic Peptide 130 H 0-100 pg/mL Procalcitonin < 0.05 L 0.05-0.5 ng/mL Total Bilirubin 0.4 0.2-1.0 mg/dL Aspartate Amino Transf (AST/SGOT) 26 10-37 U/L Alanine Aminotransferase (ALT/SGPT) 22 12-78 U/L Alkaline Phosphatase 126 50-136 U/L Total Protein 5.7 L 6.0-8.3 g/dL Albumin 2.4 L 3.5-5.0 g/dL DIAGNOSTICS / RADIOLOGY RESULTS: [ ] PLAN NEURO: Minimize central acting medications as possible. Maintain fall precautions, adequate lighting during the day PULMONARY: Supplemental 02 as needed. Maintain aspiration precautions at all times CARDIOVASCULAR: Follow hemodynamics. Vital signs per facility protocol GI & NUTRITION: Continue with nutritional support. Continue stool softeners and laxatives as needed. KIDNEYS & ELECTROLYTES: Strict monitoring of intake, output and overall fluid balance. Avoid nephrotoxic medications to the extent possible. Medications to be dosed according to renal function. Monitor electrolytes and replace as needed ENDOCRINE: Maintain blood glucose between 100-180 at all times. Hypoglycemia protocol in place INFECTIOUS DISEASE: Trend temperature, WBC and procalcitonin level Follow cultures, deescalate antibiotics as soon as possible. Panculture if new onset fever ONCOLOGY/HEMATOLOGY/COAGULATION: Monitor for s/s of bleeding Monitor hemoglobin, coagulation studies as needed SKIN: Pressure ulcer prevention per facility protocol Specialty mattress ORTHO/REHAB: Continue PT/OT Prophylaxis: Continue GI and DVT prophylaxis Code Status: Full Resuscitation Disposition: TBD Other: Total patient care time exceeds 35 minutes excluding all procedures. ROSA SALTER Nov 22, 2024 20:14
--- NOTE | 2024-11-23 21:56 | DS ---
Discharge Summary DIAGNOSE(S): [Community acquired pneumonia, POA Acute COPD exacerbation, POA NSTEMI, likely type II demand ischemia, POA Acute respiratory insufficiency, POA Chronic diastolic heart failure without exacerbation, POA Coronary artery disease, on dual antiplatelet therapy Atrial fibrillation, on Eliquis5 mg b.i.d. Hyponatremia, POA, resolved Benign prostate hyperplasia History of remote neck surgery History of remote back surgery] HOSPITAL COURSE SUMMARY: [] Patient did well with antibiotics and diuretic RAGMAN(S): [Pulmonary and cardiology] PROCEDURE(S)/TREATMENT(S): [] PROBLEM(S): [] FOLLOW-UP TEST(S): [None] DISCHARGE INSTRUCTIONS: [Follow with PCP in 1-2 days] Home Meds Active Scripts Losartan Potassium (Losartan Potassium) 50 Mg Tablet, 50 MG PO DAILY, #30 TAB 2 Refills Prov:BRET AWAD [employer] 05/27/22 Reported Medications Vitamin E Mixed (Vitamin E) 1,000 Unit Capsule, 1 CAP PO DAILY for 30 Days, #30 CAP 0 Refills 11/18/24 Potassium Chloride (Potassium Chloride) 20 Meq Tab.er.prt, 1 TAB PO DAILY for 30 Days, #30 TAB 0 Refills 11/18/24 [Benzonatate] No Conflict Check, 100 MG PO BID 11/17/24 [Furosemide] No Conflict Check, 30 MG PO DAILY 11/17/24 Buspirone HCl (Buspirone HCl) 5 Mg Tablet, 1 TAB PO BID 11/17/24 Duloxetine HCl (Duloxetine HCl) 30 Mg Capsule.dr, 1 CAP PO DAILY 11/17/24 Clopidogrel Bisulfate (Clopidogrel) 75 Mg Tablet, 1 TAB PO DAILY 11/17/24 [Tamsulosin] No Conflict Check 11/17/24 Metoprolol Tartrate (Metoprolol Tartrate) 100 Mg Tablet, 1 TAB PO BID 11/17/24 Apixaban (Eliquis) 5 Mg Tablet, 1 TAB PO BID 11/17/24 Alendronate Sodium (Alendronate Sodium) 70 Mg Tablet, 1 TAB PO QWEEK 11/17/24 Montelukast Sodium (Montelukast Sodium) 10 Mg Tablet, 1 TAB PO HS 11/17/24 Fluticasone Propionate (Flonase Nasal [place]) 50 Mcg/Actuation [place], 1 SPRY EN BID PRN for NASAL CONGESTION 11/17/24 Furosemide (Furosemide) 20 Mg Tablet, 1 TAB PO DAILY 11/17/24 Metoprolol Tartrate (Lopressor 50Mg Tab) 50 Mg Tab, 1 TAB PO BID 11/17/24 Tamsulosin HCl (Flomax) 0.4 Mg Cap.er.24h, 0.4 MG PO DAILY, CAPSULE.DR 06/17/24 Metoprolol Succinate (Metoprolol Succinate) 100 Mg Tab.er.24h, 50 MG PO DAILY, TAB 08/21/23 Esomeprazole Magnesium (Nexium) 20 Mg Capsule.dr, 20 MG PO DAILY, CAP 07/05/23 Cilostazol (Cilostazol) 50 Mg Tablet, 50 MG PO BID, TAB 07/05/23 Atorvastatin Calcium (Atorvastatin Calcium) 40 Mg Tablet, 1 TAB PO HS 07/05/23 Zinc Gluconate (Zinc) 50 Mg Tablet, 500 MG PO DAILY, TAB 05/24/22 Cholecalciferol (Vitamin D3) (Vitamin D3) 2,400 Unit/Ml Liquid, 2000 UNIT PO DAILY 05/24/22 Ascorbic Acid (Vitamin C) 1,000 Mg Tablet, 1000 MG PO DAILY, TAB 05/24/22 Vitamin B Complex (Vitamin B Complex) 1 Each Tablet, 1 EACH PO DAILY, TAB 05/24/22 Nitroglycerin (Nitroglycerin) 0.4 Mg Tab.subl, 0.4 MG SL AD, TAB.SL 05/24/22 ROSINA MORA MD Nov 23, 2024 21:56
[2024-11-27] MEDS ORDERED: FURO40TA5 PO (23:34)
[2024-11-27] MEDS ORDERED: AZIT250T9 PO (23:34)
== END 2024-11-22 13:15 | disposition home or self-care (01) | DRG 193 ==
LOC: EDH 14:25 → EDHIP 17:27 → 3AH 20:01
PROVIDERS: ADMIT Internal Medicine; ATTEND Internal Medicine
DX: J18.9 Pneumonia, unspecified organism (principal); I21.A1 Myocardial infarction type 2; J44.1 Chronic obstructive pulmonary disease with (acute) exacerbation; I50.32 Chronic diastolic (congestive) heart failure; E87.1 Hypo-osmolality and hyponatremia; J44.0 Chronic obstructive pulmonary disease with (acute) lower respiratory infection; J98.4 Other disorders of lung; I11.0 Hypertensive heart disease with heart failure; I48.91 Unspecified atrial fibrillation; N40.0 Benign prostatic hyperplasia without lower urinary tract symptoms; I25.10 Atherosclerotic heart disease of native coronary artery without angina pectoris; Z82.49 Family history of ischemic heart disease and other diseases of the circulatory system; Z88.5 Allergy status to narcotic agent; Z95.0 Presence of cardiac pacemaker
CPT/HCPCS: 36415; 71045; 80048; 80053; 82550; 83605; 83735; 83880; 84145; 84484; 85025; 85610; 85730; 87071; 87205; 87635; 87804; 93005; 93306; 94640; 94664; 94667; 94668; 94760; 96374; 96376; 99285; G0378; J0456; J0696; J1940; J2405; J2919; Q0169